=== PATIENT | female | born 1995 | race Caucasian/White ===

== ENCOUNTER 2018-09-11 13:40 | Observation (INO) | payer OTHER, BC, SELFPAY ==
[2018-09-11 13:42] VITALS: BP 142/93; PULSE 84; RESP 17; TEMP 36.4; O2SAT 99; BMI 25.7
--- NOTE | 2018-09-11 14:49 | RAD_ITS ---
STUDY: X-RAY CHEST REASON FOR EXAM: Female, 23 years old. Cough and shortness of breath. TECHNIQUE: Single AP portable view of the chest. COMPARISON: None. FINDINGS: The lungs are clear and expanded. There is no demonstrated pleural abnormality. Normal size heart. Normal mediastinum and huma. Normal visualized pulmonary arteries. Normal visualized aortic arch and descending thoracic aorta. Normal visualized thoracic spine. Normal visualized ribs, clavicles, and shoulders. There is no demonstrated abnormality of the visualized soft tissue structures of the upper abdomen. RAD/Chest 1 View (Portable) IMPRESSION: Normal x-ray examination of the chest. Electronically Signed: Braulio Reinoso, at 15:25 EDT , Service support ,
[2018-09-11 15:03] VITALS: BP 127/95; PULSE 77; RESP 16; O2SAT 98
[2018-09-11 15:21] LABS: Absolute Lymphocyte Count 0.53 X10^3/uL (0.83-4.51); Absolute Neutrophil Count 1.5 X10^3/uL (2.0-7.7); Basophil# 0.01 X10^3/uL; Basophil% 0.5 % (0-1); Eosinophil# 0.04 X10^3/uL; Eosinophils% 1.8 % (0-5); Hematocrit 37.9 % (37-47); Hemoglobin 12.9 g/dL (12.0-15.0); Lymphocyte # 0.53 X10^3/ul (4.0); Mean Corpuscular Hgb 30.1 pg (27.0-32.0); Mean Corpuscular Volume 88.6 fL (81-99); Mean Platelet Vol. 10.7 fl (6.2-12.0); Monocyte# 0.13 X10^3/uL; Monocyte% 5.9 % (0-10); NRBC Flagged by Analyzer 0 % (0-5); Neutrophil # 1.49 X10^3/uL (2.7-7.7); Neutrophil % 67.3 % (47-70); POSITIVE DIFFERENTIAL YES; Platelet Count 104 K/mm3 (150-450); RBC Distribution Width CV 11.8 % (11.6-14.6); RBC Distribution Width SD 37.4 fl (35.1-43.9); Red Blood Count 4.28 M/mm3 (4.2-5.4); White Blood Count 2.2 K/mm3 (4.4-11.0)
[2018-09-11 15:27] LABS: ALB/GLOB Ratio 0.8 RATIO (0.9-2.4); AST(SGOT) 323 U/L (15-37); Alanine Aminotransfer ALT/SGPT 349 U/L (13-56); Albumin, Serum 3.5 g/dL (3.2-5.0); Alkaline Phosphatase 85 U/L (45-117); Anion Gap 5 (5-15); BUN 8 mg/dL (7-18); BUN/Creat Ratio 10.5 RATIO (10-20); Calcium,Total 8.7 mg/dL (8.5-10.1); Chloride 107 mmol/L (98-107); Creatinine, Serum 0.76 mg/dL (0.55-1.02); EST Glomerular Filtration Rate 98 mL/min (>60); Est Glom Filt Rate - Afr Amer 119 mL/min (>60); Estimated Creatinine Clearance 101.82 ml/min; Globulin 4.5 g/dL (2.2-4.2); Glucose 90 mg/dL (74-106); Potassium 3.6 mmol/L (3.5-5.1); Sodium Level 138 mmol/L (136-145)
--- NOTE | 2018-09-11 15:41 | US_ITS ---
STUDY: ABDOMINAL ULTRASOUND - RIGHT UPPER QUADRANT REASON FOR VISIT: Female, 23 years old. Abdominal pain, lightheaded. Hepatitis. TECHNIQUE: Ultrasound evaluation of the right upper quadrant was performed with real-time and static chapin-scale imaging. TECHNICAL QUALITY: Adequate. COMPARISON: None. FINDINGS: Liver: The liver measures 21.1 cm. There is increased echogenicity consistent with fatty infiltration. The bile ducts are within normal limits. There is hepatic color flow. The direction of portal flow is hepatopetal. There is no demonstrated mass lesion. Gallbladder: Normal distended gallbladder. The gallbladder wall measures 2 mm. There is a negative sonographic Grover's sign. There is no pericholecystic fluid. There are no gallstones. Common Bile Duct (C.B.D.): The common bile duct measures 4 mm. Pancreas: Normal size of the head, body and tail of the pancreas. There is diffuse decreased echogenicity of the pancreas, which is of uncertain etiology and significance. There is no demonstrated pancreatic mass or cyst. Right Kidney: Normal size of the right kidney. The right kidney measures 11.6 x 4.1 x 4.0 cm. Normal renal cortex. The right cortex measures 1.6 cm. There is no demonstrated renal mass or cyst. There is no right hydronephrosis. US/Gallbladder IMPRESSION: 1. Hepatomegaly with steatosis. 2. Decreased echogenicity of the pancreas, which is of uncertain etiology and significance. Overall, the visualized pancreas is normal in size and contour. Electronically Signed: Henry Norris MD at 16:43 EDT , Service support ,
[2018-09-11 15:46] LABS: Internal QC Validated? YES +Cl - CLEAR BKGD; Pregnancy, Serum, hCG Quali. NEGATIVE Negative
[2018-09-11 15:47] LABS: Differential Indicated SCAN CRITERIA MET
[2018-09-11 16:01] LABS: Lipase 71 U/L (73-393)
[2018-09-11 16:03] LABS: Prothrombin Time (Protime)PT. 12.6 SECONDS (11.7-14.9)
[2018-09-11 16:04] LABS: Partial Thromboplast Time 48.2 Seconds (24.1-36.2)
--- NOTE | 2018-09-11 16:07 | ED.VISSUMM ---
- ER Visit Summary Date of Service: 09/11/18 Chief Complaint: Cough History of Present Illness: The patient is a 23 F who presents with a cough for 2 to 3 days. She felt slightly short of breath. Subjective fevers and sputum noted. Patient also reports blood mixed in her stool that she noticed last night. She had a history of hemorrhoids in the past but this bleeding is different. She does not take blood thinners. Denies abdominal pain. Physical Examination: Afebrile and vital signs unremarkable. Heart regular rate and rhythm. Lungs clear. Abdomen soft and nontender. Rectal exam showed no gross blood. Nontender. Chaperoned by ENMA Arteaga. Skin appears unremarkable. Test Results: Chest x-ray pending. White count 2.2 and platelets 104. Total bilirubin 1.4, ALT 349, AST 323. test pending. Lipase pending. Coags pending. Hepatitis panel pending. Hemoccult testing was positive. Ultrasound was pending. Emergency Department Course and Treatment: Patient is previously healthy. Because of her symptoms, I did order some labs and imaging. Her results so far have shown leukopenia and thrombocytopenia. She also has hepatitis pattern. I added on lipase, coags, ultrasound, and hepatitis panel. Disposition is still pending at this time. Dr. Hawk will check chest x-ray and ultrasound results as well as lipase, coags, hCG. Hepatitis panel will not likely be resulted by today. Further treatment and disposition are pending further results. Treatment Plan: As above Disposition: Pending Impression: 1. Cough 2. Hepatitis 3. Hemoccult positive stool 4. Leukopenia 5. Thrombocytopenia This note was generated with [employer] dictation software. It may contain incorrect words, spelling, and punctuation that were not noted in review of the chart prior to signing ED Disposition - Plan for ED Patient: Referrals: Care Physician,No Primary [Primary Care Provider] -
[2018-09-11 16:22] LABS: Differential Comment SCANNED
[2018-09-11 19:14] VITALS: BP 135/90; PULSE 93; RESP 16; O2SAT 99
[2018-09-11 19:43] VITALS: BP 130/84; PULSE 89; RESP 18; TEMP 36.9; O2SAT 98
[2018-09-11 19:44] VITALS: BMI 23.3
[2018-09-11 19:55] VITALS: BMI 23.4
--- NOTE | 2018-09-11 20:54 | HP.PCM_ITS ---
Problem List (1) Pneumonitis Status: Acute (2) Hepatitis Status: Acute History of Present Illness Date of Admission: 09/11/18 Chief Complaint: cough and shortness of breath The patient is a 23 year old F who presents to the emergency department because of a 3 days history of a cough 1 day history of shortness of breath. Cough is dry and nonproductive. Shortness of breath is at rest and with exertion. She denies any orthopnea or paroxysmal nocturnal dyspnea or lower extremity swelling. Denies any fever or chills. No upper respiratory symptoms. The patient also had an episode of bright red bleeding per rectum. This was not associated with any abdominal colic or cramps or pain. Blood work done in the emergency room reviewed elevated liver transaminases and ultrasound showing hepatomegaly with coarsening of the hepatic echotexture. Patient gives a history of one miscarriage and one early demise at 8 weeks and 22 weeks respectively. Gives a history of pain numbness and paleness of the fingertips on exposure to cold. She provides a history suggestive of photosensitivity with burning sensation of the skin on exposure to sun. Patient also has an occasional malar rash when she consumes alcohol and also when exposed to sun. She denies any joint pains or swelling. Patient denies IV drug abuse. She has obtained multiple tattoos in the past and one was done at the friend's house 4 years ago. There is a history of multiple sexual partners in the past. Patient is currently engaged and has been with her current partner for 2 years. She is unsure if she has never been tested for HIV or hepatitis. 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 Denies: Anorexia, Fever, Night Sweats Comment: Rest of the review of systems is essentially negative or as above in the body of the history VTE Information - Inpt Only VTE Present on Admission: No VTE Mechan Device Prophylaxis: None VTE Pharm Prophylaxis ordered?: Yes Patient Problems: Active and Suspected Problems Pneumonitis (Acute) Hepatitis (Acute) - Physical Exam General: Alert, Oriented x3, Cooperative, No apparent distress, - - Appears anxious and in mild distress. HEENT: Atraumatic Oral: Ulcerations Present Neck: Supple, No JVD, Negative Carotid Bruits Lungs: Clear to auscultation, Diminished Cardiovascular: Regular rate, Regular Rhythm, Normal S1, Normal S2, No murmurs Abdomen: Bowel Sounds Present, Soft, - - Tenderness in the right hypochondrium and in the epigastrium Skin: - - Mild malar rash Musculoskeletal: No Tenderness to Palpation of Joints or Extremities, No Muscle Wasting Neurological: Cranial nerves II-XII grossly intact, Deep Tendon Reflexes 2+/4 and Symmetrical, Neuro grossly intact Vital Signs Temp Pulse Resp BP Pulse Ox 98.5 F 89 18 130/84 H 98 09/11/18 19:43 09/11/18 19:43 09/11/18 19:43 09/11/18 19:43 09/11/18 19:43 Oxygen Delivery Method Room Air Weight: 63.7 kg Body Mass Index (BMI) 23.3 Microbiology Past 72 Hours 09/11/18 15:08 Stool Occult Blood (NAVEEN) - Final Stool Occult Blood Positive Laboratory Tests Past 24 Hrs 09/11/18 09/11/18 09/11/18 15:00 15:00 15:00 WBC 2.2 L RBC 4.28 Hgb 12.9 Hct 37.9 MCV 88.6 MCH 30.1 MCHC 34.0 RDW Std Deviation 37.4 RDW Coeff of Michael 11.8 Plt Count 104 L MPV 10.7 Immature Gran % (Auto) 0.500 Neut % (Auto) 67.3 Lymph % (Auto) 24.0 Stephenson % (Auto) 5.9 Eos % (Auto) 1.8 Baso % (Auto) 0.5 Absolute Neuts (auto) 1.5 L Absolute Lymphs (auto) 0.53 L Nucleated RBC % 0 Differential Comment SCANNED Diff Path Review May foll PT INR APTT Sodium 138 Potassium 3.6 Chloride 107 Carbon Dioxide 26.0 Anion Gap 5 BUN 8 Creatinine 0.76 Estim Creat Clear Calc 101.82 Est GFR (MDRD) Af Amer 119 Est GFR (MDRD) Non-Af 98 BUN/Creatinine Ratio 10.5 Glucose 90 Calcium 8.7 Total Bilirubin 1.40 H AST 323 H ALT 349 H Alkaline Phosphatase 85 Total Protein 8.0 Albumin 3.5 Globulin 4.5 H Albumin/Globulin Ratio 0.8 L Lipase Serum , Qual NEGATIVE Hepatitis A IgM Ab Hep Bs Antigen Hep B Core IgM Ab Hepatitis C Ab (EIA) 09/11/18 09/11/18 09/11/18 15:00 15:00 15:58 WBC RBC Hgb Hct MCV MCH MCHC RDW Std Deviation RDW Coeff of Michael Plt Count MPV Immature Gran % (Auto) Neut % (Auto) Lymph % (Auto) Stephenson % (Auto) Eos % (Auto) Baso % (Auto) Absolute Neuts (auto) Absolute Lymphs (auto) Nucleated RBC % Differential Comment Diff Path Review PT 12.6 INR 1.0 APTT 48.2 H Sodium Potassium Chloride Carbon Dioxide Anion Gap BUN Creatinine Estim Creat Clear Calc Est GFR (MDRD) Af Amer Est GFR (MDRD) Non-Af BUN/Creatinine Ratio Glucose Calcium Total Bilirubin AST ALT Alkaline Phosphatase Total Protein Albumin Globulin Albumin/Globulin Ratio Lipase 71 L Serum , Qual Hepatitis A IgM Ab Pending Hep Bs Antigen Pending Hep B Core IgM Ab Pending Hepatitis C Ab (EIA) Pending Assessment/Plan All Active Problems Pneumonitis (Acute) Hepatitis (Acute) 1. Acute onset of cough and shortness of breath. Chest x-ray normal on lung exam normal essentially. Suspect pneumonitis which may be noninfectious. For now we will treat with IV azithromycin. Oxygen supplementation if needed. Check d-dimer and if elevated then we will do a CT pulmonary angiogram. This will also help further image the lungs. 2. Abnormal liver function test/elevated liver transaminases. Will need to rule out chronic hepatitis B or C. Check for autoimmune hepatitis as well with anti-smooth muscle antibodies. Await results of testing. 3. Cytopenia. Patient has leukopenia and thrombocytopenia. Will screen for HIV. Patient informed that we will be testing for this. 4. Possible autoimmune/connective tissue disease. Main suspicion is for SLE (photosensitivity, rash, Raynaud's phenomena, miscarriages, oral ulcers, cytopenia). We will check relevant serologies including SID, [id number] DNA, sed rate and CRP amongst others. 5. Show DVT prophylaxis pharmacologically. Code Visit Inpatient E&M: 06715 Init Hosp L3
[2018-09-11 21:21] LABS: Erythrocyte Sedimentation Rate 16 mm/hr (0-20)
[2018-09-11 21:31] LABS: D-Dimer Quantitative (DVT/PE) 0.27 FEU/ug/m (0.27-0.49)
[2018-09-11] MEDS: 0.9% NaCl Peripheral Flush Adult/Peds IV (22:11)
[2018-09-11] MEDS: Ondansetron 4 MG/2 ML Vial IV (22:11)
[2018-09-11 23:47] LABS: Bacteria 0 SEEN /hpf (None Seen); Mucous, Urine 0 SEEN /hpf (<or=2+); Red Blood Cells-Urine 0 SEEN /hpf (0-5); White Blood Cells 0 SEEN /hpf (0-5)
[2018-09-11 23:52] LABS: Color, Urine Yellow (Yellow); Glucose, Dipstick Normal (Normal); Ketone-Dipstick Negative (Negative); Leukocyte Esterase-Dipstick Negative /ul (Negative); Nitrite-Dipstick Negative (Negative); Occult Blood-Urine 50 /ul (Negative); Protein-Dipstick Negative (Negative); Urine Bilirubin Dipstick Negative (Negative); Urine Clarity Clear (Clear); Urine Urobilinogen Normal (Normal); Urine pH 6.5 (5.0 - 8.0)
[2018-09-12 00:03] LABS: Squamous Epithelial Cells - UA 0-5 SEEN /hpf (5-10)
[2018-09-12 01:40] VITALS: BP 104/51; PULSE 72; RESP 16; TEMP 36.9; O2SAT 99
[2018-09-12 03:51] LABS: Rheumatoid Factor < 10.0 IU/mL (<15)
[2018-09-12 05:30] VITALS: BP 124/68; PULSE 75; RESP 16; TEMP 36.8; O2SAT 99
[2018-09-12 07:51] LABS: ALB/GLOB Ratio 0.7 RATIO (0.9-2.4); AST(SGOT) 396 U/L (15-37); Alanine Aminotransfer ALT/SGPT 420 U/L (13-56); Albumin, Serum 3.3 g/dL (3.2-5.0); Alkaline Phosphatase 83 U/L (45-117); Anion Gap 6 (5-15); BUN 10 mg/dL (7-18); BUN/Creat Ratio 11.7 RATIO (10-20); Calcium,Total 8.9 mg/dL (8.5-10.1); Chloride 107 mmol/L (98-107); Creatinine, Serum 0.85 mg/dL (0.55-1.02); EST Glomerular Filtration Rate 86 mL/min (>60); Est Glom Filt Rate - Afr Amer 104 mL/min (>60); Estimated Creatinine Clearance 91.04 ml/min; Globulin 4.6 g/dL (2.2-4.2); Glucose 82 mg/dL (74-106); Potassium 4.1 mmol/L (3.5-5.1); Protein, Total 7.9 g/dL (6.4-8.2); Sodium Level 140 mmol/L (136-145)
[2018-09-12 08:20] LABS: Absolute Lymphocyte Count 0.68 X10^3/uL (0.83-4.51); Absolute Neutrophil Count 1.4 X10^3/uL (2.0-7.7); Basophil# 0.02 X10^3/uL; Basophil% 0.9 % (0-1); Eosinophil# 0.06 X10^3/uL; Eosinophils% 2.6 % (0-5); Hematocrit 36.9 % (37-47); Hemoglobin 12.4 g/dL (12.0-15.0); Lymphocyte # 0.68 X10^3/ul (4.0); Lymphocyte % 29.6 % (19-41); Mean Corp Hgb Conc 33.6 g/dL (32-36); Mean Corpuscular Hgb 30.2 pg (27.0-32.0); Mean Corpuscular Volume 89.8 fL (81-99); Mean Platelet Vol. 11.1 fl (6.2-12.0); Monocyte# 0.15 X10^3/uL; Monocyte% 6.5 % (0-10); NRBC Flagged by Analyzer 0 % (0-5); Neutrophil # 1.38 X10^3/uL (2.7-7.7); Platelet Count 96 K/mm3 (150-450); RBC Distribution Width CV 11.8 % (11.6-14.6); RBC Distribution Width SD 38.5 fl (35.1-43.9); Red Blood Count 4.11 M/mm3 (4.2-5.4); White Blood Count 2.3 K/mm3 (4.4-11.0)
[2018-09-12 09:18] LABS: Differential Comment SCANNED
[2018-09-12 09:19] LABS: Platelet Estimate MOD DEC (ADEQ)
[2018-09-12] MEDS: 0.9% NaCl Peripheral Flush Adult/Peds IV ×2 (09:28→16:52)
[2018-09-12] MEDS: oxyCODONE 5 MG Tablet PO (09:28)
--- NOTE | 2018-09-12 09:53 | PCM.CONS.GEN ---
Reason for Consult Date of Consultation: 09/12/18 Reason for Consultation: Rectal bleeding History of Present Illness: The patient is a 23 year old F presented to the ER due to cough/shortness of breath and bright red blood in her stool. Patient states that she noticed bright red blood in her stool a small amount Peg night. Patient's hemoglobin is within normal range at 12.4. Patient states she has had diarrhea for the last 2 weeks. Yesterday she also had diarrhea but denied any blood. Patient denies any abdominal pain but does state with palpation it may be a 2/10 in the right upper quadrant denies any nausea or vomiting. Patient's LFTs AST and ALT were in 300s, ultrasound of the gallbladder was normal with a normal wall, no gallstones, no pericholecystic fluid, normal common bile duct, hepatitis panel pending. Patient denies any history of drug use or IV drug use or STDs. Patient does state that her boyfriend also has diarrhea unsure who had a first and has questionable mass on his neck which he was referred to for ENT and has not seen due to no insurance currently. Patient has never had a colonoscopy in the past denies any family history of colon cancer. Patient states she has had a history of hemorrhoids and had occasional bleeding with that but that was different as there is blood on the toilet paper and it was painful for the bowel movement this was not painful, and she is unaware of any current hemorrhoids. Past Medical History Allergies Latex, Natural Rubber Allergy (Verified 09/11/18 13:41) Rash Penicillins Allergy (Verified 09/11/18 13:41) Rash shellfish derived Allergy (Verified 09/11/18 13:41) Angioedema tree nut Allergy (Verified 09/11/18 13:41) Swelling red dye Adverse Reaction (Verified 09/11/18 13:41) Vomiting Surgical History: no surgical history [employer] History: No pertinent [employer] history, - - Miscarriages x2 Lives: With Family Smoking Status: Never smoker Tobacco Use: Non-smoker Alcohol: Occasional Drugs: None - *Family History Offspring History Items: No pertinent history Review of Systems Constitutional: Denies: Fever Eyes: Denies: Blurred vision - With glasses HEENT: Denies: Difficulty Swallowing Cardiovascular: Denies: Chest Pain Respiratory: Reports: Cough. Denies: Shortness of Breath - None currently Gastrointestinal: Reports: Diarrhea, Hematochezia - Only x1 on Sunday night. Denies: Abdominal Pain, Vomiting Genitourinary: Denies: Dysuria Musculoskeletal: Denies: Joint Pain Skin: Denies: Rash Neurological: Denies: Balance problems Psychiatric: Reports: Anxiety. Denies: Depression Hematologic/ Lymphatic: Reports: Easy Bruising. Denies: Easy Bleeding Patient Problems: Active and Suspected Problems Pneumonitis (Acute) Hepatitis (Acute) - Physical Exam General: Alert, Oriented x3, Cooperative, No apparent distress HEENT: Atraumatic Lungs: Clear to auscultation Cardiovascular: Regular rate Abdomen: Soft, Non-Distended, Tender - Mild epigastric, no peritoneal signs Extremities: No clubbing, No cyanosis, No edema Neurological: Cranial nerves II-XII grossly intact Psych/Mental Status: Normal Affect Vital Signs Temp Pulse Resp BP Pulse Ox 98.2 F 75 16 124/68 H 99 09/12/18 05:30 09/12/18 05:30 09/12/18 05:30 09/12/18 05:30 09/12/18 05:30 Oxygen Delivery Method Room Air Weight: 140 lb 6.951 oz Body Mass Index (BMI) 23.3 Intake and Output for Last 24 Hours 09/10/18 09/11/18 09/12/18 23:59 23:59 23:59 Intake Total 652 / 652 120 / 120 Balance 652 / 652 120 / 120 Microbiology Past 72 Hours 09/11/18 15:08 Stool Occult Blood (NAVEEN) - Final Stool Occult Blood Positive Laboratory Tests Past 24 Hrs 09/11/18 09/11/18 09/11/18 15:00 15:00 15:00 WBC 2.2 L RBC 4.28 Hgb 12.9 Hct 37.9 MCV 88.6 MCH 30.1 MCHC 34.0 RDW Std Deviation 37.4 RDW Coeff of Michael 11.8 Plt Count 104 L MPV 10.7 Immature Gran % (Auto) 0.500 Neut % (Auto) 67.3 Lymph % (Auto) 24.0 Kent % (Auto) 5.9 Eos % (Auto) 1.8 Baso % (Auto) 0.5 Absolute Neuts (auto) 1.5 L Absolute Lymphs (auto) 0.53 L Nucleated RBC % 0 Differential Comment SCANNED Diff Path Review May foll Platelet Estimate ESR PT INR APTT D-Dimer Quant (PE/DVT) Sodium 138 Potassium 3.6 Chloride 107 Carbon Dioxide 26.0 Anion Gap 5 BUN 8 Creatinine 0.76 Estim Creat Clear Calc 101.82 Est GFR (MDRD) Af Amer 119 Est GFR (MDRD) Non-Af 98 BUN/Creatinine Ratio 10.5 Glucose 90 Calcium 8.7 Total Bilirubin 1.40 H AST 323 H ALT 349 H Alkaline Phosphatase 85 C-React Prot Ext Range Total Protein 8.0 Albumin 3.5 Globulin 4.5 H Albumin/Globulin Ratio 0.8 L Lipase Serum , Qual NEGATIVE Urine Color Urine Clarity Urine pH Ur Specific [place] Urine Protein Urine Glucose (UA) Urine Ketones Urine Occult Blood Urine Nitrite Urine Bilirubin Urine Urobilinogen Ur Leukocyte Esterase Urine RBC Urine WBC Ur Squamous Epith Cells Urine Bacteria Urine Mucus Rheumatoid Factor SID Screen c-ANCA Antibody p-ANCA Antibody CHON-1 Antibody SS-A/Ro IgG Antibody SS-B/La IgG Antibody Sm (Matias) Antibody CHIP BIN [employer]OR TENDER Antibody Scl-70 Scleroderma Ab Double Strand DNA Ab Centromere B Antibody Anti-Smooth Muscle Ab Anti-Cardiolipin IgG Ab Anti-Cardiolipin IgM Ab EBV Capsid Ag IgG Ab EBV Capsid Ag IgM Ab EBV Early Antigen IgG EBV Nuclear Ag IgG Ab EBV Antibody Interp Hepatitis A IgM Ab Hep Bs Antigen Hep B Core IgM Ab Hepatitis C Ab (EIA) 09/11/18 09/11/18 09/11/18 15:00 15:00 15:00 WBC RBC Hgb Hct MCV MCH MCHC RDW Std Deviation RDW Coeff of Michael Plt Count MPV Immature Gran % (Auto) Neut % (Auto) Lymph % (Auto) [place] % (Auto) Eos % (Auto) Baso % (Auto) Absolute Neuts (auto) Absolute Lymphs (auto) Nucleated RBC % Differential Comment Diff Path Review Platelet Estimate ESR 16 PT 12.6 INR 1.0 APTT 48.2 H D-Dimer Quant (PE/DVT) Sodium Potassium Chloride Carbon Dioxide Anion Gap BUN Creatinine Estim Creat Clear Calc Est GFR (MDRD) Af Amer Est GFR (MDRD) Non-Af BUN/Creatinine Ratio Glucose Calcium Total Bilirubin AST ALT Alkaline Phosphatase C-React Prot Ext Range Total Protein Albumin Globulin Albumin/Globulin Ratio Lipase 71 L Serum , Qual Urine Color Urine Clarity Urine pH Ur Specific [place] Urine Protein Urine Glucose (UA) Urine Ketones Urine Occult Blood Urine Nitrite Urine Bilirubin Urine Urobilinogen Ur Leukocyte Esterase Urine RBC Urine WBC Ur Squamous Epith Cells Urine Bacteria Urine Mucus Rheumatoid Factor SID Screen c-ANCA Antibody p-ANCA Antibody CHON-1 Antibody SS-A/Ro IgG Antibody SS-B/La IgG Antibody Sm (Matias) Antibody CHIP [employer]ENDER Antibody Scl-70 Scleroderma Ab Double Strand DNA Ab Centromere B Antibody Anti-Smooth Muscle Ab Anti-Cardiolipin IgG Ab Anti-Cardiolipin IgM Ab EBV Capsid Ag IgG Ab EBV Capsid Ag IgM Ab EBV Early Antigen IgG EBV Nuclear Ag IgG Ab EBV Antibody Interp Hepatitis A IgM Ab Hep Bs Antigen Hep B Core IgM Ab Hepatitis C Ab (EIA) 09/11/18 09/11/18 09/11/18 15:00 15:00 15:58 WBC RBC Hgb Hct MCV MCH MCHC RDW Std Deviation RDW Coeff of Michael Plt Count MPV Immature Gran % (Auto) Neut % (Auto) Lymph % (Auto) [place] % (Auto) Eos % (Auto) Baso % (Auto) Absolute Neuts (auto) Absolute Lymphs (auto) Nucleated RBC % Differential Comment Diff Path Review Platelet Estimate ESR PT INR APTT D-Dimer Quant (PE/DVT) 0.27 Sodium Potassium Chloride Carbon Dioxide Anion Gap BUN Creatinine Estim Creat Clear Calc Est GFR (MDRD) Af Amer Est GFR (MDRD) Non-Af BUN/Creatinine Ratio Glucose Calcium Total Bilirubin AST ALT Alkaline Phosphatase C-React Prot Ext Range 6.60 H Total Protein Albumin Globulin Albumin/Globulin Ratio Lipase Serum , Qual Urine Color Urine Clarity Urine pH Ur Specific [place] Urine Protein Urine Glucose (UA) Urine Ketones Urine Occult Blood Urine Nitrite Urine Bilirubin Urine Urobilinogen Ur Leukocyte Esterase Urine RBC Urine WBC Ur Squamous Epith Cells Urine Bacteria Urine Mucus Rheumatoid Factor < 10.0 SID Screen c-ANCA Antibody p-ANCA Antibody CHON-1 Antibody SS-A/Ro IgG Antibody SS-B/La IgG Antibody Sm (Matias) Antibody CHIP [employer]ER Antibody Scl-70 Scleroderma Ab Double Strand DNA Ab Centromere B Antibody Anti-Smooth Muscle Ab Anti-Cardiolipin IgG Ab Anti-Cardiolipin IgM Ab EBV Capsid Ag IgG Ab EBV Capsid Ag IgM Ab EBV Early Antigen IgG EBV Nuclear Ag IgG Ab EBV Antibody Interp Hepatitis A IgM Ab Pending Hep Bs Antigen Pending Hep B Core IgM Ab Pending Hepatitis C Ab (EIA) Pending 09/11/18 09/12/18 09/12/18 22:28 05:20 05:20 WBC RBC Hgb Hct MCV MCH MCHC RDW Std Deviation RDW Coeff of Michael Plt Count MPV Immature Gran % (Auto) Neut % (Auto) Lymph % (Auto) [place] % (Auto) Eos % (Auto) Baso % (Auto) Absolute Neuts (auto) Absolute Lymphs (auto) Nucleated RBC % Differential Comment Diff Path Review Platelet Estimate ESR PT INR APTT D-Dimer Quant (PE/DVT) Sodium Potassium Chloride Carbon Dioxide Anion Gap BUN Creatinine Estim Creat Clear Calc Est GFR (MDRD) Af Amer Est GFR (MDRD) Non-Af BUN/Creatinine Ratio Glucose Calcium Total Bilirubin AST ALT Alkaline Phosphatase C-React Prot Ext Range Total Protein Albumin Globulin Albumin/Globulin Ratio Lipase Serum , Qual Urine Color Yellow Urine Clarity Clear Urine pH 6.5 Ur Specific [place] 1.010 Urine Protein Negative Urine Glucose (UA) Normal Urine Ketones Negative Urine Occult Blood 50 H Urine Nitrite Negative Urine Bilirubin Negative Urine Urobilinogen Normal Ur Leukocyte Esterase Negative Urine RBC 0 SEEN Urine WBC 0 SEEN Ur Squamous Epith Cells 0-5 SEEN Urine Bacteria 0 SEEN Urine Mucus 0 SEEN Rheumatoid Factor SID Screen c-ANCA Antibody Pending p-ANCA Antibody Pending CHON-1 Antibody SS-A/Ro IgG Antibody SS-B/La IgG Antibody Sm (Matias) Antibody CHIP [employer]ER Antibody Scl-70 Scleroderma Ab Double Strand DNA Ab Centromere B Antibody Anti-Smooth Muscle Ab Pending Anti-Cardiolipin IgG Ab Anti-Cardiolipin IgM Ab EBV Capsid Ag IgG Ab Pending EBV Capsid Ag IgM Ab Pending EBV Early Antigen IgG Pending EBV Nuclear Ag IgG Ab Pending EBV Antibody Interp Pending Hepatitis A IgM Ab Hep Bs Antigen Hep B Core IgM Ab Hepatitis C Ab (EIA) 09/12/18 09/12/18 09/12/18 05:20 05:20 05:20 WBC 2.3 L RBC 4.11 L Hgb 12.4 Hct 36.9 L MCV 89.8 MCH 30.2 MCHC 33.6 RDW Std Deviation 38.5 RDW Coeff of Michael 11.8 Plt Count 96 L MPV 11.1 Immature Gran % (Auto) 0.400 Neut % (Auto) 60.0 Lymph % (Auto) 29.6 [place] % (Auto) 6.5 Eos % (Auto) 2.6 Baso % (Auto) 0.9 Absolute Neuts (auto) 1.4 L Absolute Lymphs (auto) 0.68 L Nucleated RBC % 0 Differential Comment SCANNED Diff Path Review Platelet Estimate MOD DEC ESR PT INR APTT D-Dimer Quant (PE/DVT) Sodium Potassium Chloride Carbon Dioxide Anion Gap BUN Creatinine Estim Creat Clear Calc Est GFR (MDRD) Af Amer Est GFR (MDRD) Non-Af BUN/Creatinine Ratio Glucose Calcium Total Bilirubin AST ALT Alkaline Phosphatase C-React Prot Ext Range Total Protein Albumin Globulin Albumin/Globulin Ratio Lipase Serum , Qual Urine Color Urine Clarity Urine pH Ur Specific [place] Urine Protein Urine Glucose (UA) Urine Ketones Urine Occult Blood Urine Nitrite Urine Bilirubin Urine Urobilinogen Ur Leukocyte Esterase Urine RBC Urine WBC Ur Squamous Epith Cells Urine Bacteria Urine Mucus Rheumatoid Factor SID Screen Pending c-ANCA Antibody p-ANCA Antibody CHON-1 Antibody Pending SS-A/Ro IgG Antibody Pending SS-B/La IgG Antibody Pending Sm (Matias) Antibody Pending CHIP [employer]ER Antibody Pending Scl-70 Scleroderma Ab Pending Double Strand DNA Ab Pending Centromere B Antibody Pending Anti-Smooth Muscle Ab Anti-Cardiolipin IgG Ab Pending Anti-Cardiolipin IgM Ab Pending EBV Capsid Ag IgG Ab EBV Capsid Ag IgM Ab EBV Early Antigen IgG EBV Nuclear Ag IgG Ab EBV Antibody Interp Hepatitis A IgM Ab Hep Bs Antigen Hep B Core IgM Ab Hepatitis C Ab (EIA) 09/12/18 05:20 WBC RBC Hgb Hct MCV MCH MCHC RDW Std Deviation RDW Coeff of Michael Plt Count MPV Immature Gran % (Auto) Neut % (Auto) Lymph % (Auto) [place] % (Auto) Eos % (Auto) Baso % (Auto) Absolute Neuts (auto) Absolute Lymphs (auto) Nucleated RBC % Differential Comment Diff Path Review Platelet Estimate ESR PT INR APTT D-Dimer Quant (PE/DVT) Sodium 140 Potassium 4.1 Chloride 107 Carbon Dioxide 27.0 Anion Gap 6 BUN 10 Creatinine 0.85 Estim Creat Clear Calc 91.04 Est GFR (MDRD) Af Amer 104 Est GFR (MDRD) Non-Af 86 BUN/Creatinine Ratio 11.7 Glucose 82 Calcium 8.9 Total Bilirubin 1.60 H AST 396 H ALT 420 H Alkaline Phosphatase 83 C-React Prot Ext Range Total Protein 7.9 Albumin 3.3 Globulin 4.6 H Albumin/Globulin Ratio 0.7 L Lipase Serum , Qual Urine Color Urine Clarity Urine pH Ur Specific [place] Urine Protein Urine Glucose (UA) Urine Ketones Urine Occult Blood Urine Nitrite Urine Bilirubin Urine Urobilinogen Ur Leukocyte Esterase Urine RBC Urine WBC Ur Squamous Epith Cells Urine Bacteria Urine Mucus Rheumatoid Factor SID Screen c-ANCA Antibody p-ANCA Antibody CHON-1 Antibody SS-A/Ro IgG Antibody SS-B/La IgG Antibody Sm (Matias) Antibody CHIP BIN CONVEYOR TENDER Antibody Scl-70 Scleroderma Ab Double Strand DNA Ab Centromere B Antibody Anti-Smooth Muscle Ab Anti-Cardiolipin IgG Ab Anti-Cardiolipin IgM Ab EBV Capsid Ag IgG Ab EBV Capsid Ag IgM Ab EBV Early Antigen IgG EBV Nuclear Ag IgG Ab EBV Antibody Interp Hepatitis A IgM Ab Hep Bs Antigen Hep B Core IgM Ab Hepatitis C Ab (EIA) Assessment/Plan All Active Problems Pneumonitis (Acute) Hepatitis (Acute) 23-year-old female with elevated liver functions likely hepatitis, rectal bleeding 1. Patient only had the one episode of small amount of bright red blood per rectum. Patient's hemoglobins within normal limits, vital signs stable. Recommend outpatient colonoscopy for follow-up unless patient has increased bleeding or change in labs/vital signs. Patient was agreeable to plan. d/w Dr. Vela. I have discussed the above with the patient. I have offered the patient colonoscopy for evaluation. I have explained the risks/benefits of the procedure and described the procedure. I have discussed the risks with the patient, including but not limited to: infection, bleeding, perforation of the GI tract requiring emergency surgery, inability to complete the procedure, injury to any internal organs, complications of anesthesia, etc. - the patient understands and agrees to proceed. I have answered all the patient's questions to the patient's satisfaction and the patient has no further questions. Patient will contact the office for bowel prep and scheduling when she is discharged. 2. Elevated functions continue work-up per primary. Judi Rodriguez M.D. Pager: [phone] [facility] [address] [place] [address], [address], [address] [place] [address] Office: [phone] Code Visit Inpatient E&M: 55455 Init Hosp L2
--- NOTE | 2018-09-12 11:10 | CASEMGMT ---
ENMA VITALE assessment: Face to Face with patient for initial transition planning/care coordination assessment. ENMA VITALE introduced self and role at [facility], pt voices understanding and consents to assessment at this time. Pt is sitting up in bed in no distress at this time. Pt is A/Ox4 at this time and answers all questions appropriately at this time. Care providers, pharmacy, and demographics verified/updated at this time. PCP: Pt states does not have current PCP but would like in-network PCP list at this time and list provided at this time. Specialists: [facility] Preferred Pharmacy: [facility] Insurance: MMO Prescription Benefit: MMO Living Will/HPOA: Pt states does not have LW/HPOA and declines info at this time. LNOK: David Milligan, sig other; Emily Castaneda, mother Living Arrangements: Pt states lives with family/fiance in house and states no concerns at home at this time. Pt states is independent with ADL's. Transportation: Pt states drives self and states no transportation concerns at this time. DME/HHC: Pt states no current DME or need for any at this time. Pt states no concerns with going home at time of discharge. 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 Pt states does not smoke or drink ETOH. Pt states no further concerns/needs at this time. CM to follow for any further discharge planning/needs. Advised pt to ask for CM if any further questions/concerns/needs arise, voices understanding. Pt Goal: Home Plan: [place] ENMA VITALE
[2018-09-12 11:30] VITALS: BP 103/59; PULSE 87; RESP 18; TEMP 36.7; O2SAT 98
--- NOTE | 2018-09-12 11:35 | PN_ITS ---
Patient Problems: Active and Suspected Problems Pneumonitis (Acute) Hepatitis (Acute) Subjective: Patient seen and examined. She has no complaints today. Rectal bleeding didnt recur. She denies any fever, chills, palpitations, dizziness, nausea, vomiting or diarrhea. Review of systems otherwise negative. ON further enquiry, patient says her mother had ovarian cancer in her mid 20s, and her maternal grandfather had a form of cancer, but she is not sure exactly which type it is. She doesnt know of any history of arterial or venous thromboembolism in her family. Labs and vitals reviewed. Liver enzymes noted to be trending upwards. Vitals/I&O's: Vital Signs Temp Pulse Resp BP Pulse Ox 98.2 F 75 16 124/68 H 99 09/12/18 05:30 09/12/18 05:30 09/12/18 05:30 09/12/18 05:30 09/12/18 05:30 Oxygen Delivery Method Room Air Weight: 140 lb 6.951 oz Body Mass Index (BMI) 23.3 Intake and Output for Last 24 Hours 09/10/18 09/11/18 09/12/18 23:59 23:59 23:59 Intake Total 652 / 652 120 / 120 Balance 652 / 652 120 / 120 General: Alert, Oriented x3, Cooperative, No apparent distress HEENT: Atraumatic, PERRLA, EOMI, Normocephalic Oral: Moist Mucosa Neck: Supple, No JVD, Negative Carotid Bruits Lungs: Clear to auscultation, Normal air movement, No rhonchi, No wheeze, No rales Cardiovascular: Regular rate, Regular Rhythm, Normal S1, Normal S2, No murmurs Abdomen: Bowel Sounds Present, Soft, Non Tender, Non-Distended, No Hepato- splenomegaly Extremities: No clubbing, No cyanosis, No edema, Capillary Refill Less than 3 Seconds Skin: No breakdown, - - faint erythematous malar rash, sparing the nasolabial folds Musculoskeletal: No Tenderness to Palpation of Joints or Extremities Lymphatic: No Cervical, Supraclavicular, or Inguinal Adenopathy Neurological: Cranial nerves II-XII grossly intact, Neuro grossly intact, Motor Exam 5/5 strength throughout Psych/Mental Status: Normal Affect, Appropriate, Alert and oriented to time, place, person, mood and affect Microbiology Past 72 Hours 09/11/18 15:08 Stool Stool Occult Blood (NAVEEN) - Final Occult Blood Positive Laboratory Results 09/11/18 15:00: WBC 2.2 L, RBC 4.28, Hgb 12.9, Hct 37.9, MCV 88.6, MCH 30.1, MCHC 34.0, RDW Std Deviation 37.4, RDW Coeff of Michael 11.8, Plt Count 104 L, MPV 10.7, Immature Gran % (Auto) 0.500, Neut % (Auto) 67.3, Lymph % (Auto) 24.0, [place] % (Auto) 5.9, Eos % (Auto) 1.8, Baso % (Auto) 0.5, Absolute Neuts (auto) 1.5 L, Absolute Lymphs (auto) 0.53 L, Nucleated RBC % 0, Differential Comment SCANNED, Diff Path Review June09/11/18 15:00: Sodium 138, Potassium 3.6, Chloride 107, Carbon Dioxide 26.0, Anion Gap 5, BUN 8, Creatinine 0.76, Estim Creat Clear Calc 101.82, Est GFR (MDRD) Af Amer 119, Est GFR (MDRD) Non-Af 98, BUN/Creatinine Ratio 10.5, Glucose 90, Calcium 8.7, Total Bilirubin 1.40 H, AST 323 H, ALT 349 H, Alkaline Phosphatase 85, Total Protein 8.0, Albumin 3.5, Globulin 4.5 H, Albumin/Globulin Ratio 0.8 L 09/11/18 15:00: Serum , Qual NEGATIVE 09/11/18 15:00: PT 12.6, INR 1.0, APTT 48.2 H 09/11/18 15:00: Lipase 71 L 09/11/18 15:00: ESR 16 09/11/18 15:00: D-Dimer Quant (PE/DVT) 0.27 09/11/18 15:00: C-React Prot Ext Range 6.60 H, Rheumatoid Factor < 10.0 09/11/18 15:58: Hepatitis A IgM Ab Pending, Hep Bs Antigen Pending, Hep B Core IgM Ab Pending, Hepatitis C Ab (EIA) Pending 09/11/18 22:28: Urine Color Yellow, Urine Clarity Clear, Urine pH 6.5, Ur Specific [place] 1.010, Urine Protein Negative, Urine Glucose (UA) Normal, Urine Ketones Negative, Urine Occult Blood 50 H, Urine Nitrite Negative, Urine Bilirubin Negative, Urine Urobilinogen Normal, Ur Leukocyte Esterase Negative, Urine RBC 0 SEEN, Urine WBC 0 SEEN, Ur Squamous Epith Cells 0-5 SEEN, Urine B acteria 0 SEEN, Urine Mucus 0 SEEN 09/12/18 05:20: EBV Capsid Ag IgG Ab Pending, EBV Capsid Ag IgM Ab Pending, EBV Early Antigen IgG Pending, EBV Nuclear Ag IgG Ab Pending, EBV Antibody Interp Pending 09/12/18 05:20: c-ANCA Antibody Pending, p-ANCA Antibody Pending, Anti-Smooth Muscle Ab Pending 09/12/18 05:20: SID Screen Pending, CHON-1 Antibody Pending, SS-A/Ro IgG Antibody Pending, SS-B/La IgG Antibody Pending, Sm (Matias) Antibody Pending, DATABASE SECURITY EXPERT Antibody Pending, Scl-70 Scleroderma Ab Pending, Double Strand DNA Ab Pending, Centromere B Antibody Pending 09/12/18 05:20: Anti-Cardiolipin IgG Ab Pending, Anti-Cardiolipin IgM Ab Pending 09/12/18 05:20: WBC 2.3 L, RBC 4.11 L, Hgb 12.4, Hct 36.9 L, MCV 89.8, MCH 30.2, MCHC 33.6, RDW Std Deviation 38.5, RDW Coeff of Michael 11.8, Plt Count 96 L, MPV 11 .1, Immature Gran % (Auto) 0.400, Neut % (Auto) 60.0, Lymph % (Auto) 29.6, [place] % (Auto) 6.5, Eos % (Auto) 2.6, Baso % (Auto) 0.9, Absolute Neuts (auto) 1.4 L, Absolute Lymphs (auto) 0.68 L, Nucleated RBC % 0, Differential Comment SCANNED, Platelet Estimate MOD 09/12/18 05:20: Sodium 140, Potassium 4.1, Chloride 107, Carbon Dioxide 27.0, Anion Gap 6, BUN 10, Creatinine 0.85, Estim Creat Clear Calc 91.04, Est GFR (MDRD) Af Amer 104, Est GFR (MDRD) Non-Af 86, BUN/Creatinine Ratio 11.7, Glucose 82, Calcium 8.9, Total Bilirubin 1.60 H, AST 396 H, ALT 420 H, Alkaline Phosphatase 83, Total Protein 7.9, Albumin 3.3, Globulin 4.6 H, Albumin/Globulin Ratio 0.7 L Diagnostic Data Chest X-Ray 09/11/18 14:49 IMPRESSION: Normal x-ray examination of the chest. Electronically Signed: Braulio Kemar, at 15:25 EDT , Service support , Gallbladder Ultrasound 09/11/18 15:41 IMPRESSION: 1. Hepatomegaly with steatosis. 2. Decreased echogenicity of the pancreas, which is of uncertain etiology and significance. Overall, the visualized pancreas is normal in size and contour. Electronically Signed: Henry Norris MD at 16:43 EDT , Service support , Current Medications Azithromycin 500 mg/ Dextrose 255 mls @ 250 mls/hr IV Q24 JOVANI Stop: 09/13/18 11:02 Last Admin: 09/12/18 09:28 Dose: 250 mls/hr Documented by: Sodium Chloride () 250 mls @ 15 mls/hr IV .[id number] PRN PRN Reason: SALINE FLUSH Nutritional Formula (Lactose Free) (Ensure Enlive) 120 ml PO 4X/DAY JOVANI Last Admin: 09/12/18 09:35 Dose: Not Given Documented by: Ondansetron HCl (Zofran) 4 mg IV Q8H PRN PRN PRN Reason: NAUSEA/VOMITING Last Admin: 09/11/18 22:11 Dose: 4 mg Documented by: Sodium Chloride () 10 - 40 ml IV UD PRN PRN Reason: SALINE FLUSH Last Admin: 09/12/18 09:28 Dose: 20 ml Documented by: Medical Necessity - Tobacco Use Smoking Status: Never smoker Tobacco Use: Non-smoker Assessment/Plan All Active Problems Pneumonitis (Acute) Hepatitis (Acute) 1. Probable pneumonitis * admitted with cough and shortness of breath, which were both acute * Chest Xray was WNL, and showed no acute cardiopulmonary process * was started on IV azithromycin empirically, says she feels much better; cough and SOB have resolved * D dimer was not elevated. * continue IV azithromycin for now 2. Elevated transaminases * liver enzymes trended up further today. * Bilirubin is up to 1.6 from 1.4; AST/ALT up to 396/420 from 323/349. * ALP is WNL, therefore making cholestasis less likely * gallbadder USG showed normal gallbladder, and showed hepatomegaly with steatosis, and decreased echogenicity of the pancreas of uncertain etiology and significance though overall the visualized pancreas was normal in size and contour * hepatitis screen and autoimmune panel pending. * 3. Rectal bleeding * States she had an episode of rectal bleeding yesterday. Blood was mixed with stool. She has a history of fibroids but states that this bleeding with a previous bleeding due to hemorrhoids. * Stool for occult blood was positive. * Surgery consulted. Plan is for patient to have colonoscopy on outpatient basis. * 4. Possible autoimmune disease, likely SLE * patient complains of erythema over her cheeks, which worsens exposes to sunlight. Physical examination confirmed presence of a malar rash with sparing of the nasolabial folds. * And also had two miscarriages. Labs also showed leukopenia and thrombocytopenia. * autoimmune panel is pending. * for follow up with rheumatology upon discharge * rheumatoid factor was negative, at <10 * 5. Leukopenia and thrombocytopenia * asymptomatic. Wbc is 2.3, and platelets are down to 96, from 104 on admission * this may be due to suspected autoimmune condition. * will monitor. HIV screen ordered at time of admission, results pending. DVT prophylaxis: SCDs Code Visit Inpatient E&M: 18742 Subs Hosp L3
[2018-09-12 12:39] LABS: Bilirubin, Direct 0.53 mg/dL (0.00-0.30)
[2018-09-12] MEDS: Ketorolac 15 MG/ML Vial IV (16:51)
[2018-09-12 17:00] VITALS: BP 111/68; PULSE 68; RESP 14; TEMP 36.7; O2SAT 99
[2018-09-12 21:27] VITALS: BP 109/68; PULSE 67; RESP 15; TEMP 36.8; O2SAT 97
[2018-09-13 03:37] VITALS: BP 109/73; PULSE 72; RESP 15; TEMP 36.8; O2SAT 99
[2018-09-13 04:06] LABS: HEPATITIS B SURFACE AG Negative (Negative); Hepatitis A IgM Antibody Negative (Negative); Hepatitis B Core AB IgM Negative (Negative)
[2018-09-13 05:57] LABS: Absolute Neutrophil Count 1.3 X10^3/uL (2.0-7.7); Basophil# 0.02 X10^3/uL; Basophil% 0.9 % (0-1); Eosinophil# 0.05 X10^3/uL; Eosinophils% 2.1 % (0-5); Hemoglobin 12.6 g/dL (12.0-15.0); Mean Corp Hgb Conc 34.1 g/dL (32-36); Mean Corpuscular Hgb 30.5 pg (27.0-32.0); Mean Corpuscular Volume 89.6 fL (81-99); Mean Platelet Vol. 10.5 fl (6.2-12.0); Monocyte# 0.14 X10^3/uL; NRBC Flagged by Analyzer 0 % (0-5); Neutrophil # 1.33 X10^3/uL (2.7-7.7); Neutrophil % 56.6 % (47-70); Platelet Count 106 K/mm3 (150-450); RBC Distribution Width CV 11.7 % (11.6-14.6); RBC Distribution Width SD 37.5 fl (35.1-43.9); Red Blood Count 4.13 M/mm3 (4.2-5.4); White Blood Count 2.4 K/mm3 (4.4-11.0)
[2018-09-13 06:23] LABS: ALB/GLOB Ratio 0.7 RATIO (0.9-2.4); AST(SGOT) 342 U/L (15-37); Alanine Aminotransfer ALT/SGPT 419 U/L (13-56); Albumin, Serum 3.1 g/dL (3.2-5.0); Alkaline Phosphatase 72 U/L (45-117); Anion Gap 6 (5-15); BUN 11 mg/dL (7-18); BUN/Creat Ratio 14.2 RATIO (10-20); Calcium,Total 8.8 mg/dL (8.5-10.1); Chloride 106 mmol/L (98-107); Creatinine, Serum 0.77 mg/dL (0.55-1.02); EST Glomerular Filtration Rate 97 mL/min (>60); Est Glom Filt Rate - Afr Amer 117 mL/min (>60); Globulin 4.3 g/dL (2.2-4.2); Glucose 87 mg/dL (74-106); Potassium 4.2 mmol/L (3.5-5.1); Protein, Total 7.4 g/dL (6.4-8.2); Sodium Level 140 mmol/L (136-145)
--- NOTE | 2018-09-13 08:58 | PN_ITS ---
Patient Problems: Active and Suspected Problems Pneumonitis (Acute) Hepatitis (Acute) Subjective: Patient seen and examined. She had no complaints and remains asymptomatic. She denies any nausea vomiting, fever or chills, abdominal pain, diarrhea vomiting. Review of systems otherwise negative. Labs and vitals reviewed. Cough and shortness of breath have resolved. Patient's bilirubin noted to have trended down to 1.3. AST has trended down to 342 and ALT is at 419. ALT was 420 yesterday. ALP has remained within normal limits. Patient's hyperbilirubinemia appears to be more direct bilirubinemia as steroid bilirubin was elevated at 0.53 yesterday. Hepatitis panel and autoimmune panel still pending. Patient however informs hospitalist that she had a negative hepatitis B and C screen done by her tobacco feeder catcher in October 2017 after she had a last miscarriage. Hospitalist counseled patient that in light of her being stable and the downward trend of her liver enzymes, decision will be to discharge patient today. Hospitalist informed patient that she will call Dr. Vira Germain and set up a PCP appointment for the patient as early as possible, hopefully 09/16/2018 so the patient could be followed up in the results of the labs could be communicated to her if the lab results were ready then. Patient initially did seem agreeable but subsequently said that she did not think that she should be discharged because there was something going on with her liver and she did not know what was going on with it. Hospitalist explained to patient and her significant other that in light of the downward trend of her liver enzymes with patient being totally stable, as well as the negative gallbladder ultrasound wh ich showed no evidence of cholestasis, and showed enlarged liver with steatosis, patient could be followed up on outpatient basis for further work-up to be determined and also to await results of the hepatitis panel and autoimmune panel as SLE was strongly suspected and could explain her symptoms as well as the 2 miscarriages that she had had and the malar rash that she was present. Patient's significant other was not agreeable to this and was significantly upset as he did not think that whether patient was symptomatic or otherwise was relevant and wanted patient to stay in the hospital until we got the results of her autoimmune panel and hepatitis panel back. Hospitalist explained to patient and significant other that she had called the lab yesterday to follow-up on the labs and was told that as they were send out tests, it could not be determined exactly when the results could come back. Patient' significant other was still not agreeable and wanted to stay in the hospital for however long it took for the labs to come back. Hospitalist explained to patient and her significant other that staying longer in the hospital would not be a problem, but they needed to understand that it would just entail daily labs being done as there was no current active intervention going on in light of the cause of the elevated transaminases not being known. Patient and significant other then stated that they feel they had wasted 3 days in the hospital and so would want to stay as long as he took to get the labs back. They were also informed by hospitalist that the next week course of action if liver enzymes had continue trending upwards was to get patient to be followed up by cash posting representative or ecological economist. Hospital did not have a ecological economist or cash posting representative in house and since patient was currently totally stable, she could be followed up on outpatient basis as a referring facility was likely not going to accept patient in light of her being totally stable and asymptomatic. Patient and significant other were visibly upset and stated that they wanted a different hospitalist to take over the care of the patient. Hospitalist discussed case with Dr Robyn Dominguez, who will assume care of the patient. Vitals/I&O's: Vital Signs Temp Pulse Resp BP Pulse Ox 98.3 F 72 15 109/73 99 09/13/18 03:37 09/13/18 03:37 09/13/18 03:37 09/13/18 03:37 09/13/18 03:37 Oxygen Delivery Method Room Air Weight: 140 lb 6.951 oz Body Mass Index (BMI) 23.3 Intake and Output for Last 24 Hours 09/11/18 09/12/18 09/13/18 23:59 23:59 23:59 Intake Total 652 / 652 1837 60 / 60 Balance 652 / 652 1837 60 60 General: Alert, Oriented x3, Cooperative, No apparent distress HEENT: Atraumatic, PERRLA, EOMI, Normocephalic Oral: Moist Mucosa Neck: Supple, No JVD, Negative Carotid Bruits Lungs: Clear to auscultation, Normal air movement, No rhonchi, No wheeze, No rales Cardiovascular: Regular rate, Regular Rhythm, Normal S1, Normal S2, No murmurs Abdomen: Bowel Sounds Present, Soft, Non Tender, Non-Distended, No Hepato- splenomegaly Extremities: No clubbing, No cyanosis, No edema, Capillary Refill Less than 3 Seconds Skin: No breakdown, - - faint erythematous malar rash, sparing the nasolabial folds Musculoskeletal: No Tenderness to Palpation of Joints or Extremities Lymphatic: No Cervical, Supraclavicular, or Inguinal Adenopathy Neurological: Cranial nerves II-XII grossly intact, Neuro grossly intact, Motor Exam 5/5 strength throughout Psych/Mental Status: Normal Affect, Appropriate, Alert and oriented to time, place, person, mood and affect Microbiology Past 72 Hours 09/11/18 15:08 Stool Stool Occult Blood (NAVEEN) - Final Occult Blood Positive Laboratory Results 09/12/18 05:20: Differential Comment SCANNED, Platelet Estimate MOD 09/12/18 05:20: Direct Bilirubin 0.53 H 09/13/18 05:35: WBC 2.4 L, RBC 4.13 L, Hgb 12.6, Hct 37.0, MCV 89.6, MCH 30.5, MCHC 34.1, RDW Std Deviation 37.5, RDW Coeff of Michael 11.7, Plt Count 106 L, MPV 10.5, Immature Gran % (Auto) 0.400, Neut % (Auto) 56.6, Lymph % (Auto) 34.0, [place] % (Auto) 6.0, Eos % (Auto) 2.1, Baso % (Auto) 0.9, Absolute Neuts (auto) 1.3 L, Absolute Lymphs (auto) 0.80 L, Nucleated RBC % 0 09/13/18 05:35: Sodium 140, Potassium 4.2, Chloride 106, Carbon Dioxide 28.0, Anion Gap 6, BUN 11, Creatinine 0.77, Estim Creat Clear Calc 100.50, Est GFR (MDRD) Af Amer 117, Est GFR (MDRD) Non-Af 97, BUN/Creatinine Ratio 14.2, Glucose 87, Calcium 8.8, Total Bilirubin 1.30 H, AST 342 H, ALT 419 H, Alkaline Phosphatase 72, Total Protein 7.4, Albumin 3.1 L, Globulin 4.3 H, Albumin/Globulin Ratio 0.7 L Diagnostic Data Chest X-Ray 09/11/18 14:49 IMPRESSION: Normal x-ray examination of the chest. Electronically Signed: Braulio Kemar, at 15:25 EDT , Service support , Gallbladder Ultrasound 09/11/18 15:41 IMPRESSION: 1. Hepatomegaly with steatosis. 2. Decreased echogenicity of the pancreas, which is of uncertain etiology and significance. Overall, the visualized pancreas is normal in size and contour. Electronically Signed: Henry Norris MD at 16:43 EDT , Service support , Current Medications Azithromycin 500 mg/ Dextrose 255 mls @ 250 mls/hr IV Q24 JOVANI Stop: 09/13/18 11:02 Last Admin: 09/12/18 09:28 Dose: 250 mls/hr Documented by: Sodium Chloride () 250 mls @ 15 mls/hr IV .[id number] PRN PRN Reason: SALINE FLUSH Ondansetron HCl (Zofran) 4 mg IV Q8H PRN PRN PRN Reason: NAUSEA/VOMITING Last Admin: 09/11/18 22:11 Dose: 4 mg Documented by: Sodium Chloride () 10 - 40 ml IV UD PRN PRN Reason: SALINE FLUSH Last Admin: 09/12/18 16:52 Dose: 20 ml Documented by: Medical Necessity - Tobacco Use Smoking Status: Never smoker Tobacco Use: Non-smoker Assessment/Plan All Active Problems Pneumonitis (Acute) Hepatitis (Acute) 1. Probable pneumonitis * resolved. cough and SOB have resolved. * on IV azithromycin. WIll dc after today. * 2. Elevated transaminases * liver enzymes have started trending downwards * bilirubin down to 1.3; nad AST/ALT down to 342/419 from 396/420. ALT remains normal * gallbadder USG showed normal gallbladder, and showed hepatomegaly with steatosis, and decreased echogenicity of the pancreas of uncertain etiology and significance though overall the visualized pancreas was normal in size and contour * hepatitis screen and autoimmune panel still pending. * 3. Rectal bleeding * hasnt recurred since admission. stool for occult blood positive * general surgery on board; plan is for outpatient colonoscopy * 4. Probable autoimmune disease, likely SLE * patient complains of erythema over her cheeks, which worsens exposes to sunlight. Physical examination confirmed presence of a malar rash with sparing of the nasolabial folds. * And also had two miscarriages. Labs still show leukopenia and thrombocytopenia. * autoimmune panel is pending. * for follow up with rheumatology upon discharge * rheumatoid factor was negative, at <10 * 5. Leukopenia and thrombocytopenia * asymptomatic. wbc is 2.4, nad platelets are 106 today. Wbc is 2.3, and platelets are down to 96, from 104 on admission * this may be due to suspected autoimmune condition. * will monitor. DVT prophylaxis: SCDs Patient and significant other wish for different hospitalist to take care of patient because they don't agree with proposed plan of discharge, and want to stay in hospital till results of hepatitis screen and autoimmune panel are back. Dr Dominguez will be assuming care of patient. Code Visit OBSV E&M: 23172 Subsequent observation care L2
[2018-09-13 10:35] VITALS: BP 101/56; PULSE 75; RESP 14; TEMP 36.4; O2SAT 98
[2018-09-13 11:45] LABS: Hep C Antibodies <0.1 s/co ratio (0.0-0.9)
[2018-09-13] MEDS: oxyCODONE 5 MG Tablet PO (12:45)
--- NOTE | 2018-09-13 12:51 | PCM.PROGNOTE ---
Patient Problems: Active and Suspected Problems Thrombocytopenia (Acute) Leukopenia (Acute) Pneumonitis (Acute) Hepatitis (Acute) Subjective: The patient is a 23-year-old female who presented to the emergency department at [facility] on 09/11/2018 complaining of a 3-day history of a mostly dry cough associated with sore throat and some nasal congestion. She additionally complained of feeling short of breath. She denied fever or chills. She also had an episode of bright red rectal bleeding with red blood mixed with the stool, in the water and on the toilet paper. She does have a history of constipation and has had hemorrhoidal bleeding in the past. She denies any abdominal pain, nausea or vomiting. Vital signs at presentation to the emergency room were temperature 97.5, blood pressure 142/93, heart rate 84, respiratory rate 17 and she was 99% saturated on room air. CBC was significant for a decreased white blood cell count at 2.2, hemoglobin of 12.9 and platelets of 104,000. The differential was unremarkable. PT was within normal limits and the PTT was mildly increased at 48.2. D-dimer was normal. BMP was unremarkable. The total bilirubin was elevated at 1.4, alkaline phosphatase was normal and the AST was 323 with an ALT of 349. ESR was normal at 16 and the CRP was very mildly increased at 6.6. UA showed 0 WBCs per high-power field it was unremarkable. Gallbladder ultrasound was obtained and showed hepatomegaly with steatosis. There was also decreased echogenicity of the pancreas of uncertain etiology. Hepatitis panel was negative. She denies any recent [id number] or prescribed medications. She consumes only occasional social alcohol. She denied any illicit drug use. She does have tattoos. She was initially being cared for by Dr. Vela but, she was not happy and requested a new doctor. I have been asked by Dr. Vela to take over her care. Dr. Vela planned to DC the pt home because the W/U for autoimmune disorders is in progress and the test results will not be available for several days. She is afebrile and stable. Afebrile since admission Vital signs are stable Pulse ox is 98 to 99% on room air and she is not tachypneic. All lab was personally reviewed and all imaging. White blood cell count remains low at 2.4 and the platelet count is stable at 106,000. Bilirubin is mildly increased at 1.3 and there was an increase in direct bilirubin. GGTP is mildly increased at 80 and the AST is currently 342 with an ALT of 419. LDH is elevated at 285. Serum albumin is low at 3.1 but the globulin is increased at 4.3. HIV is nonreactive. Antimitochondrial antibodies and smooth muscle antibodies are pending. SID screen is also pending. EBV titers are pending. Stool was Hemoccult positive but this is suspected to be due to hemorrhoids. She states she occasionally has low-grade fevers at home. She denies any red swollen painful joints. She denies dysphagia. She has no rashes. She does complain of redness across her cheeks when she is out in the sun and when she drinks alcohol. It resolves in 1 to 2 days usually. She tells me that when her hands are exposed to cold they graham and get very painful. When her hands warm up they are very red. She states the nails have occasionally been cyanotic when this occurs. She denies any history of kidney disease. She denies any pleuritic chest pain. - Physical Exam General: Alert, Oriented x3, Cooperative, No apparent distress, Well developed, Well nourished HEENT: Atraumatic, PERRLA, EOMI, Normocephalic, - Oral: Moist Mucosa, No Gingival or Mucosal Lesions/ Ulcerations, - - No stomatitis, no evidence of pharyngitis, she does have heath on the hard palate Neck: Supple, No JVD, Negative Carotid Bruits, No Nodes, No Nuchal Rigidity, Trachea Midline Lungs: Clear to auscultation Cardiovascular: Regular rate, Regular Rhythm, Normal S1, Normal S2, No murmurs, No Ectopic Activity, No rub noted, No Gallop Abdomen: Bowel Sounds Present, Soft, Non Tender, Non-Distended, - - I did not appreciate any hepatosplenomegaly on my exam and there were no masses. There were no abdominal bruits. Extremities: No clubbing, No cyanosis, No edema, Peripheral Pulses Normal, - - No ecchymosis, no petechiae Skin: No rashes, No breakdown Musculoskeletal: No Muscle Wasting, - - There is no evidence of any erythema or swelling of joints and she has no entheitis. Vital Signs Temp Pulse Resp BP Pulse Ox 97.5 F L 75 14 101/56 L 98 09/13/18 10:35 09/13/18 10:35 09/13/18 10:35 09/13/18 10:35 09/13/18 10:35 Oxygen Delivery Method Room Air Weight: 140 lb 6.951 oz Body Mass Index (BMI) 23.3 Intake and Output for Last 24 Hours 09/11/18 09/12/18 09/13/18 23:59 23:59 23:59 Intake Total 652 / 652 1838 / 1838 600 / 600 Balance 652 / 652 1838 / 1838 600 / 600 Microbiology Past 72 Hours 09/11/18 15:08 Stool Occult Blood (NAVEEN) - Final Stool Occult Blood Positive Laboratory Tests Past 24 Hrs 09/11/18 09/11/18 09/13/18 15:00 15:58 05:35 WBC 2.4 L RBC 4.13 L Hgb 12.6 Hct 37.0 MCV 89.6 MCH 30.5 MCHC 34.1 RDW Std Deviation 37.5 RDW Coeff of Michael 11.7 Plt Count 106 L MPV 10.5 Immature Gran % (Auto) 0.400 Neut % (Auto) 56.6 Lymph % (Auto) 34.0 Borden % (Auto) 6.0 Eos % (Auto) 2.1 Baso % (Auto) 0.9 Absolute Neuts (auto) 1.3 L Absolute Lymphs (auto) 0.80 L Nucleated RBC % 0 Sodium Potassium Chloride Carbon Dioxide Anion Gap BUN Creatinine Estim Creat Clear Calc Est GFR (MDRD) Af Amer Est GFR (MDRD) Non-Af BUN/Creatinine Ratio Glucose Calcium Total Bilirubin AST ALT Alkaline Phosphatase Total Protein Albumin Globulin Albumin/Globulin Ratio Hepatitis A IgM Ab Negative Hep Bs Antigen Negative Hep B Core IgM Ab Negative Hepatitis C Ab (EIA) <0.1 HIV 1&2 Antibody Pending 09/13/18 05:35 WBC RBC Hgb Hct MCV MCH MCHC RDW Std Deviation RDW Coeff of Michael Plt Count MPV Immature Gran % (Auto) Neut % (Auto) Lymph % (Auto) Borden % (Auto) Eos % (Auto) Baso % (Auto) Absolute Neuts (auto) Absolute Lymphs (auto) Nucleated RBC % Sodium 140 Potassium 4.2 Chloride 106 Carbon Dioxide 28.0 Anion Gap 6 BUN 11 Creatinine 0.77 Estim Creat Clear Calc 100.50 Est GFR (MDRD) Af Amer 117 Est GFR (MDRD) Non-Af 97 BUN/Creatinine Ratio 14.2 Glucose 87 Calcium 8.8 Total Bilirubin 1.30 H AST 342 H ALT 419 H Alkaline Phosphatase 72 Total Protein 7.4 Albumin 3.1 L Globulin 4.3 H Albumin/Globulin Ratio 0.7 L Hepatitis A IgM Ab Hep Bs Antigen Hep B Core IgM Ab Hepatitis C Ab (EIA) HIV 1&2 Antibody Medical Necessity - Tobacco Use Smoking Status: Never smoker Tobacco Use: Non-smoker Assessment/Plan All Active Problems Thrombocytopenia (Acute) Leukopenia (Acute) Pneumonitis (Acute) Hepatitis (Acute) Impressions 1. Abnormal LFTs, leukopenia, thrombocytopenia with symptoms of URI recently -viral infection or SLE or autoimmune disease of the liver are in my differential. She does not look ill in any way and she is very anxious about having something seriously wrong. 2. Fatty infiltration of the liver present on ultrasound of the right upper quadrant 3. Viral URI suspected 4. Hematochezia-secondary to internal and external hemorrhoids....not a new finding 5. Leukopenia and thrombocytopenia-etiology unclear Add antimitochondrial antibodies and a CMV to current lab that is pending. Recheck CMP and CBC in the a.m. Metamucil 1 pkt with water BID Anusol suppositories twice daily x3 days DC in the AM if no other significant developments.
[2018-09-13 13:21] LABS: HIV - WCH Non-Reactive (Nonreactive)
[2018-09-13 13:26] LABS: GGTP 80 U/L (5-55); LDH 285 U/L (84-246)
[2018-09-13 13:43] LABS: Pathologist Review Reviewed
[2018-09-13 14:08] LABS: ANTINUCLEAR ANTIBODIES DIRECT Positive (Negative); Anti-Centromere B Ab <0.2 AI (0.0-0.9); Anti-Chromatin >8.0 AI (0.0-0.9); Anti-Jo <0.2 AI (0.0-0.9); Anti-Scleroderma-70 AB <0.2 AI (0.0-0.9); RNP Ab 2.5 AI (0.0-0.9); SJOGREN'S Anti-SS-A test < 0.2 AI (0.0-0.9); SJOGREN'S Anti-SS-B test < 0.2 AI (0.0-0.9); Smith Ab >8.0 AI (0.0-0.9)
[2018-09-13 16:08] LABS: Cytoplasmic Ab (C-ANCA) <1:20 titer (Neg:<1:20)
[2018-09-13 16:35] VITALS: BP 120/78; PULSE 76; RESP 12; TEMP 37.5; O2SAT 99
[2018-09-13] MEDS: Psyllium 1 PACKET PO ×2 (16:41→21:26)
[2018-09-13 21:25] VITALS: BP 110/75; PULSE 66; RESP 18; TEMP 36.7; O2SAT 99
[2018-09-13] MEDS: Hydrocortisone 25 MG Suppository RECTAL (21:57)
[2018-09-14 03:25] VITALS: BP 114/73; PULSE 78; RESP 16; TEMP 36.5; O2SAT 99
[2018-09-14 06:14] LABS: Amphetamine Urine VISTA NEGATIVE (<1000 ng/mL); Barbiturate Urine VISTA NEGATIVE (< 200 ng/mL); Benzodiazepine Urine VISTA NEGATIVE (< 200 ng/mL); Cocaine Urine VISTA NEGATIVE (< 300 ng/mL); Ecstacy Urine VISTA NEGATIVE (< 500 ng/mL); Methadone Urine VISTA NEGATIVE (< 300 ng/mL); PCP Urine VISTA NEGATIVE (< 25 ng/mL); THC Urine VISTA NEGATIVE (< 50 ng/mL); Vista UDS pH Range 5
[2018-09-14 07:55] VITALS: BP 127/89; PULSE 78; RESP 16; TEMP 36.8; O2SAT 98
[2018-09-14 08:10] LABS: Absolute Lymphocyte Count 0.57 X10^3/uL (0.83-4.51); Absolute Neutrophil Count 2.3 X10^3/uL (2.0-7.7); Basophil# 0.02 X10^3/uL; Basophil% 0.7 % (0-1); Eosinophil# 0.05 X10^3/uL; Eosinophils% 1.6 % (0-5); Hematocrit 42.5 % (37-47); Hemoglobin 14.7 g/dL (12.0-15.0); Lymphocyte # 0.57 X10^3/ul (4.0); Lymphocyte % 18.7 % (19-41); Mean Corp Hgb Conc 34.6 g/dL (32-36); Mean Corpuscular Hgb 30.6 pg (27.0-32.0); Mean Corpuscular Volume 88.5 fL (81-99); Mean Platelet Vol. 10.6 fl (6.2-12.0); Monocyte# 0.14 X10^3/uL; Monocyte% 4.6 % (0-10); NRBC Flagged by Analyzer 0 % (0-5); Neutrophil # 2.26 X10^3/uL (2.7-7.7); Neutrophil % 74.1 % (47-70); POSITIVE DIFFERENTIAL YES; Platelet Count 136 K/mm3 (150-450); RBC Distribution Width CV 11.5 % (11.6-14.6); RBC Distribution Width SD 37.1 fl (35.1-43.9); White Blood Count 3.1 K/mm3 (4.4-11.0)
[2018-09-14 08:22] LABS: Differential Indicated SCAN CRITERIA MET
[2018-09-14 08:27] LABS: Prothrombin Time (Protime)PT. 12.5 SECONDS (11.7-14.9)
[2018-09-14 08:29] LABS: ALB/GLOB Ratio 0.7 RATIO (0.9-2.4); AST(SGOT) 337 U/L (15-37); Alanine Aminotransfer ALT/SGPT 469 U/L (13-56); Albumin, Serum 3.4 g/dL (3.2-5.0); Alkaline Phosphatase 82 U/L (45-117); Anion Gap 6 (5-15); BUN 10 mg/dL (7-18); BUN/Creat Ratio 14.3 RATIO (10-20); Calcium,Total 9.3 mg/dL (8.5-10.1); Chloride 105 mmol/L (98-107); Cholesterol 233 mg/dL (200); EST Glomerular Filtration Rate 108 mL/min (>60); Est Glom Filt Rate - Afr Amer 131 mL/min (>60); Estimated Creatinine Clearance 110.55 ml/min; Glucose 96 mg/dL (74-106); High Density Lipoprotein 38 mg/dL; Potassium 4.7 mmol/L (3.5-5.1); Protein, Total 8.4 g/dL (6.4-8.2); Sodium Level 138 mmol/L (136-145); Triglycerides 174 mg/dL; Very Low Density Lipoprotein 35 mg/dL (5-40)
[2018-09-14] MEDS: Psyllium 1 PACKET PO (10:05)
[2018-09-14] MEDS: Hydrocortisone 25 MG Suppository RECTAL (10:05)
--- NOTE | 2018-09-14 13:18 | DCINST_ITS ---
- Discharge Diagnoses Current Active Problems: Current Active and Chronic Problems Pneumonitis (Acute) Hepatitis (Acute) You will use the following diet at home:: Other - Low-fat Your liquids should be the consistency of: Regular/Thin Discharge Activity: - - gradually return to normal activity Return to work on:: 09/23/18 Call your doctor if you observe: Fever of 101 or Higher, Swelling in the ankles, - - yellow eyes, yellow skin/jaundice, dark colored urine Instructions: Non-Alcoholic Fatty Liver Disease (NAFLD) Additional Instructions: 1. I think it is possible that the abnormalities in the blood counts and the liver tests are due to a virus. The white blood cell count and the platelets are increasing without treatment. The platelets and white blood cell count are almost normal today. The respiratory panel is negative for virues that are associated with the common cold. There are MANY tests pending....for lupus, CMV virus, mononucleosis, other autoimmune diseases that affect the liver, etc. These tests are all send outs and will not be back until the middle of the week next week. Dr. Germain can discuss the results with you at your appt next week. The ultrasound of the liver shows fatty infiltration of the liver and a mildly enlarged liver. you cholesterol is high and this can cause fatty infiltration of the liver. You should stick to a low fat diet. You may be a candidate for a cholesterol lowering drug in the future and this can be discussed with Dr. Germain after the results of all the testing is available. Pending Tests on Discharge: many Allergies/Adverse Reactions: Allergies Latex, Natural Rubber Allergy (Verified 09/11/18 13:41) Rash Penicillins Allergy (Verified 09/11/18 13:41) Rash shellfish derived Allergy (Verified 09/11/18 13:41) Angioedema tree nut Allergy (Verified 09/11/18 13:41) Swelling red dye Adverse Reaction (Verified 09/11/18 13:41) Vomiting Medications to take at Discharge Hydrocortisone [Anusol Hc] 25 mg RECTAL BID PRN PRN #12 suppos. 09/14/18 The following prescriptions were given: Hydrocortisone [Anusol Hc] 25 mg RECTAL BID PRN PRN #12 suppos. PRN Reason: Hemorrhoids Prescription Printed Primary Care Physician: Care Physician,No Primary [Primary Care Provider] - Please follow up with your Primary Care Physician in: has appt with Dr. Germain 09/20/18 Test Results: Test results from this visit will be discussed in further detail at your follow- up appointment, if applicable. Proposed Discharge Date: 09/14/18
[2018-09-14 13:32] VITALS: BP 138/94; PULSE 85; RESP 16; TEMP 36.7; O2SAT 99
--- NOTE | 2018-09-14 13:55 | DS.PCM_ITS ---
Discharge Date and Diagnosis - Problem List Patient Problems: Active and Suspected Problems Thrombocytopenia (Acute) Leukopenia (Acute) Pneumonitis (Acute) Hepatitis (Acute) Date of Admission: 09/11/18 Date of Discharge: 09/14/18 - Primary Discharge Diagnosis Active and Suspected Problems Thrombocytopenia (Acute) Leukopenia (Acute) Pneumonitis (Acute) Hepatitis (Acute) - unclear etiology Hematochezia-likely secondary to hemorrhoidal disease - Secondary Discharge Diagnosis Chronic Problems Hyperlipidemia (Chronic) Hepatic steatosis (Chronic) Irritable bowel syndrome Hospital Course and Treatment Imaging Results: Clinical Impression(s) from Imaging Studies Chest X-Ray 09/11/18 14:49 IMPRESSION: Normal x-ray examination of the chest. Electronically Signed: Braulio Reinoso, at 15:25 EDT , Service support , Gallbladder Ultrasound 09/11/18 15:41 IMPRESSION: 1. Hepatomegaly with steatosis. 2. Decreased echogenicity of the pancreas, which is of uncertain etiology and significance. Overall, the visualized pancreas is normal in size and contour. Electronically Signed: Henry Norris MD at 16:43 EDT , Service support , Laboratory Tests 09/14/18 09/14/18 09/14/18 Range/Units 07:40 07:40 07:40 WBC 3.1 L (4.4-11.0) K/mm3 RBC 4.80 (4.2-5.4) M/mm3 Hgb 14.7 (12.0-15.0) g/dL Hct 42.5 (37-47) % MCV 88.5 (81-99) fL MCH 30.6 (27.0-32.0) pg MCHC 34.6 (32-36) g/dL RDW Std Deviation 37.1 (35.1-43.9) fl RDW Coeff of Michael 11.5 L (11.6-14.6) % Plt Count 136 L (150-450) K/mm3 MPV 10.6 (6.2-12.0) fl Immature Gran % (Auto) 0.300 (0.0-0.9) % Neut % (Auto) 74.1 H (47-70) % Lymph % (Auto) 18.7 L (19-41) % [place] % (Auto) 4.6 (0-10) % Eos % (Auto) 1.6 (0-5) % Baso % (Auto) 0.7 (0-1) % Absolute Neuts (auto) 2.3 (2.0-7.7) X10^3/uL Absolute Lymphs (auto) 0.57 L (0.83-4.51) X10^3/uL Nucleated RBC % 0 (0-5) % Differential Comment Diff Path Review May foll Platelet Estimate (ADEQ) ESR (0-20) mm/hr PT 12.5 (11.7-14.9) SECONDS INR 1.0 APTT (24.1-36.2) Seconds D-Dimer Quant (PE/DVT) (0.27-0.49) FEU/ug/m Sodium 138 (136-145) mmol/L Potassium 4.7 (3.5-5.1) mmol/L Chloride 105 (98-107) mmol/L Carbon Dioxide 27.0 (21.0-32.0) mmol/L Anion Gap 6 (5-15) BUN 10 (7-18) mg/dL Creatinine 0.70 (0.55-1.02) mg/dL Estim Creat Clear Calc 110.55 ml/min Est GFR (MDRD) Af Amer 131 (>60) mL/min Est GFR (MDRD) Non-Af 108 (>60) mL/min BUN/Creatinine Ratio 14.3 (10-20) RATIO Glucose 96 (74-106) mg/dL Calcium 9.3 (8.5-10.1) mg/dL Total Bilirubin 1.00 (0.20-1.00) mg/dL Direct Bilirubin (0.00-0.30) mg/dL GGT (5-55) U/L AST 337 H (15-37) U/L ALT 469 H (13-56) U/L Alkaline Phosphatase 82 (45-117) U/L Lactate Dehydrogenase (84-246) U/L C-React Prot Ext Range (0.0-3.0) mg/L Total Protein 8.4 H (6.4-8.2) g/dL Albumin 3.4 (3.2-5.0) g/dL Globulin 5.0 H (2.2-4.2) g/dL Albumin/Globulin Ratio 0.7 L (0.9-2.4) RATIO Triglycerides 174 ( - 199) mg/dL Cholesterol 233 H (200) mg/dL LDL Cholesterol 160 H (0-130) mg/dL VLDL Cholesterol 35 (5-40) mg/dL HDL Cholesterol 38 L (40 - ) mg/dL Lipase (73-393) U/L Serum , Qual Negative Urine Color (Yellow) Urine Clarity (Clear) Urine pH (5.0 - 8.0) Ur Specific [place] (1.002-1.030) Urine Protein (Negative) mg/dl Urine Glucose (UA) (Normal) mg/dl Urine Ketones (Negative) mg/dl Urine Occult Blood (Negative) /ul Urine Nitrite (Negative) Urine Bilirubin (Negative) mg/dL Urine Urobilinogen (Normal) mg/dl Ur Leukocyte Esterase (Negative) /ul Urine RBC (0-5) /hpf Urine WBC (0-5) /hpf Ur Squamous Epith Cells (5-10) /hpf Urine Bacteria (None Seen) /hpf Urine Mucus (<or=2+) /hpf Urine Opiates Screen (< 300 ng/mL) Urine Methadone Screen (< 300 ng/mL) Ur Barbiturates Screen (< 200 ng/mL) Ur Phencyclidine Scrn (< 25 ng/mL) Ur Amphetamines Screen (<1000 ng/mL) U Methamphetamin-MDMA (< 500 ng/mL) U Benzodiazepines Scrn (< 200 ng/mL) Urine Cocaine Screen (< 300 ng/mL) U Cannabinoids Screen (< 50 ng/mL) Ur Drug Screen Comment Rheumatoid Factor (<15) IU/mL Hepatitis A IgM Ab (Negative) Hep Bs Antigen (Negative) Hep B Core IgM Ab (Negative) Hepatitis C Ab (EIA) (0.0-0.9) s/co ratio HIV 1&2 Antibody (Nonreactive) 09/14/18 09/13/18 09/13/18 Range/Units 05:45 05:35 05:35 WBC (4.4-11.0) K/mm3 RBC (4.2-5.4) M/mm3 Hgb (12.0-15.0) g/dL Hct (37-47) % MCV (81-99) fL MCH (27.0-32.0) pg MCHC (32-36) g/dL RDW Std Deviation (35.1-43.9) fl RDW Coeff of Michael (11.6-14.6) % Plt Count (150-450) K/mm3 MPV (6.2-12.0) fl Immature Gran % (Auto) (0.0-0.9) % Neut % (Auto) (47-70) % Lymph % (Auto) (19-41) % [place] % (Auto) (0-10) % Eos % (Auto) (0-5) % Baso % (Auto) (0-1) % Absolute Neuts (auto) (2.0-7.7) X10^3/uL Absolute Lymphs (auto) (0.83-4.51) X10^3/uL Nucleated RBC % (0-5) % Differential Comment Diff Path Review Platelet Estimate (ADEQ) ESR (0-20) mm/hr PT (11.7-14.9) SECONDS INR APTT (24.1-36.2) Seconds D-Dimer Quant (PE/DVT) (0.27-0.49) FEU/ug/m Sodium 140 (136-145) mmol/L Potassium 4.2 (3.5-5.1) mmol/L Chloride 106 (98-107) mmol/L Carbon Dioxide 28.0 (21.0-32.0) mmol/L Anion Gap 6 (5-15) BUN 11 (7-18) mg/dL Creatinine 0.77 (0.55-1.02) mg/dL Estim Creat Clear Calc 100.50 ml/min Est GFR (MDRD) Af Amer 117 (>60) mL/min Est GFR (MDRD) Non-Af 97 (>60) mL/min BUN/Creatinine Ratio 14.2 (10-20) RATIO Glucose 87 (74-106) mg/dL Calcium 8.8 (8.5-10.1) mg/dL Total Bilirubin 1.30 H (0.20-1.00) mg/dL Direct Bilirubin (0.00-0.30) mg/dL GGT 80 H (5-55) U/L AST 342 H (15-37) U/L ALT 419 H (13-56) U/L Alkaline Phosphatase 72 (45-117) U/L Lactate Dehydrogenase 285 H (84-246) U/L C-React Prot Ext Range (0.0-3.0) mg/L Total Protein 7.4 (6.4-8.2) g/dL Albumin 3.1 L (3.2-5.0) g/dL Globulin 4.3 H (2.2-4.2) g/dL Albumin/Globulin Ratio 0.7 L (0.9-2.4) RATIO Triglycerides ( - 199) mg/dL Cholesterol (200) mg/dL LDL Cholesterol (0-130) mg/dL VLDL Cholesterol (5-40) mg/dL HDL Cholesterol (40 - ) mg/dL Lipase (73-393) U/L Serum , Qual Negative Urine Color (Yellow) Urine Clarity (Clear) Urine pH (5.0 - 8.0) Ur Specific [place] (1.002-1.030) Urine Protein (Negative) mg/dl Urine Glucose (UA) (Normal) mg/dl Urine Ketones (Negative) mg/dl Urine Occult Blood (Negative) /ul Urine Nitrite (Negative) Urine Bilirubin (Negative) mg/dL Urine Urobilinogen (Normal) mg/dl Ur Leukocyte Esterase (Negative) /ul Urine RBC (0-5) /hpf Urine WBC (0-5) /hpf Ur Squamous Epith Cells (5-10) /hpf Urine Bacteria (None Seen) /hpf Urine Mucus (<or=2+) /hpf Urine Opiates Screen NEGATIVE (< 300 ng/mL) Urine Methadone Screen NEGATIVE (< 300 ng/mL) Ur Barbiturates Screen NEGATIVE (< 200 ng/mL) Ur Phencyclidine Scrn NEGATIVE (< 25 ng/mL) Ur Amphetamines Screen NEGATIVE (<1000 ng/mL) U Methamphetamin-MDMA NEGATIVE (< 500 ng/mL) U Benzodiazepines Scrn NEGATIVE (< 200 ng/mL) Urine Cocaine Screen NEGATIVE (< 300 ng/mL) U Cannabinoids Screen NEGATIVE (< 50 ng/mL) Ur Drug Screen Comment Rheumatoid Factor (<15) IU/mL Hepatitis A IgM Ab (Negative) Hep Bs Antigen (Negative) Hep B Core IgM Ab (Negative) Hepatitis C Ab (EIA) (0.0-0.9) s/co ratio HIV 1&2 Antibody (Nonreactive) 09/13/18 09/12/18 09/12/18 Range/Units 05:35 05:20 05:20 WBC 2.4 L (4.4-11.0) K/mm3 RBC 4.13 L (4.2-5.4) M/mm3 Hgb 12.6 (12.0-15.0) g/dL Hct 37.0 (37-47) % MCV 89.6 (81-99) fL MCH 30.5 (27.0-32.0) pg MCHC 34.1 (32-36) g/dL RDW Std Deviation 37.5 (35.1-43.9) fl RDW Coeff of Michael 11.7 (11.6-14.6) % Plt Count 106 L (150-450) K/mm3 MPV 10.5 (6.2-12.0) fl Immature Gran % (Auto) 0.400 (0.0-0.9) % Neut % (Auto) 56.6 (47-70) % Lymph % (Auto) 34.0 (19-41) % [place] % (Auto) 6.0 (0-10) % Eos % (Auto) 2.1 (0-5) % Baso % (Auto) 0.9 (0-1) % Absolute Neuts (auto) 1.3 L (2.0-7.7) X10^3/uL Absolute Lymphs (auto) 0.80 L (0.83-4.51) X10^3/uL Nucleated RBC % 0 (0-5) % Differential Comment Diff Path Review Platelet Estimate (ADEQ) ESR (0-20) mm/hr PT (11.7-14.9) SECONDS INR APTT (24.1-36.2) Seconds D-Dimer Quant (PE/DVT) (0.27-0.49) FEU/ug/m Sodium 140 (136-145) mmol/L Potassium 4.1 (3.5-5.1) mmol/L Chloride 107 (98-107) mmol/L Carbon Dioxide 27.0 (21.0-32.0) mmol/L Anion Gap 6 (5-15) BUN 10 (7-18) mg/dL Creatinine 0.85 (0.55-1.02) mg/dL Estim Creat Clear Calc 91.04 ml/min Est GFR (MDRD) Af Amer 104 (>60) mL/min Est GFR (MDRD) Non-Af 86 (>60) mL/min BUN/Creatinine Ratio 11.7 (10-20) RATIO Glucose 82 (74-106) mg/dL Calcium 8.9 (8.5-10.1) mg/dL Total Bilirubin 1.60 H (0.20-1.00) mg/dL Direct Bilirubin 0.53 H (0.00-0.30) mg/dL GGT (5-55) U/L AST 396 H (15-37) U/L ALT 420 H (13-56) U/L Alkaline Phosphatase 83 (45-117) U/L Lactate Dehydrogenase (84-246) U/L C-React Prot Ext Range (0.0-3.0) mg/L Total Protein 7.9 (6.4-8.2) g/dL Albumin 3.3 (3.2-5.0) g/dL Globulin 4.6 H (2.2-4.2) g/dL Albumin/Globulin Ratio 0.7 L (0.9-2.4) RATIO Triglycerides ( - 199) mg/dL Cholesterol (200) mg/dL LDL Cholesterol (0-130) mg/dL VLDL Cholesterol (5-40) mg/dL HDL Cholesterol (40 - ) mg/dL Lipase (73-393) U/L Serum , Qual Negative Urine Color (Yellow) Urine Clarity (Clear) Urine pH (5.0 - 8.0) Ur Specific [place] (1.002-1.030) Urine Protein (Negative) mg/dl Urine Glucose (UA) (Normal) mg/dl Urine Ketones (Negative) mg/dl Urine Occult Blood (Negative) /ul Urine Nitrite (Negative) Urine Bilirubin (Negative) mg/dL Urine Urobilinogen (Normal) mg/dl Ur Leukocyte Esterase (Negative) /ul Urine RBC (0-5) /hpf Urine WBC (0-5) /hpf Ur Squamous Epith Cells (5-10) /hpf Urine Bacteria (None Seen) /hpf Urine Mucus (<or=2+) /hpf Urine Opiates Screen (< 300 ng/mL) Urine Methadone Screen (< 300 ng/mL) Ur Barbiturates Screen (< 200 ng/mL) Ur Phencyclidine Scrn (< 25 ng/mL) Ur Amphetamines Screen (<1000 ng/mL) U Methamphetamin-MDMA (< 500 ng/mL) U Benzodiazepines Scrn (< 200 ng/mL) Urine Cocaine Screen (< 300 ng/mL) U Cannabinoids Screen (< 50 ng/mL) Ur Drug Screen Comment Rheumatoid Factor (<15) IU/mL Hepatitis A IgM Ab (Negative) Hep Bs Antigen (Negative) Hep B Core IgM Ab (Negative) Hepatitis C Ab (EIA) (0.0-0.9) s/co ratio HIV 1&2 Antibody (Nonreactive) 09/12/18 09/11/18 09/11/18 Range/Units 05:20 22:28 15:58 WBC 2.3 L (4.4-11.0) K/mm3 RBC 4.11 L (4.2-5.4) M/mm3 Hgb 12.4 (12.0-15.0) g/dL Hct 36.9 L (37-47) % MCV 89.8 (81-99) fL MCH 30.2 (27.0-32.0) pg MCHC 33.6 (32-36) g/dL RDW Std Deviation 38.5 (35.1-43.9) fl RDW Coeff of Michael 11.8 (11.6-14.6) % Plt Count 96 L (150-450) K/mm3 MPV 11.1 (6.2-12.0) fl Immature Gran % (Auto) 0.400 (0.0-0.9) % Neut % (Auto) 60.0 (47-70) % Lymph % (Auto) 29.6 (19-41) % [place] % (Auto) 6.5 (0-10) % Eos % (Auto) 2.6 (0-5) % Baso % (Auto) 0.9 (0-1) % Absolute Neuts (auto) 1.4 L (2.0-7.7) X10^3/uL Absolute Lymphs (auto) 0.68 L (0.83-4.51) X10^3/uL Nucleated RBC % 0 (0-5) % Differential Comment SCANNED Diff Path Review Platelet Estimate MOD DEC (ADEQ) ESR (0-20) mm/hr PT (11.7-14.9) SECONDS INR APTT (24.1-36.2) Seconds D-Dimer Quant (PE/DVT) (0.27-0.49) FEU/ug/m Sodium (136-145) mmol/L Potassium (3.5-5.1) mmol/L Chloride (98-107) mmol/L Carbon Dioxide (21.0-32.0) mmol/L Anion Gap (5-15) BUN (7-18) mg/dL Creatinine (0.55-1.02) mg/dL Estim Creat Clear Calc ml/min Est GFR (MDRD) Af Amer (>60) mL/min Est GFR (MDRD) Non-Af (>60) mL/min BUN/Creatinine Ratio (10-20) RATIO Glucose (74-106) mg/dL Calcium (8.5-10.1) mg/dL Total Bilirubin (0.20-1.00) mg/dL Direct Bilirubin (0.00-0.30) mg/dL GGT (5-55) U/L AST (15-37) U/L ALT (13-56) U/L Alkaline Phosphatase (45-117) U/L Lactate Dehydrogenase (84-246) U/L C-React Prot Ext Range (0.0-3.0) mg/L Total Protein (6.4-8.2) g/dL Albumin (3.2-5.0) g/dL Globulin (2.2-4.2) g/dL Albumin/Globulin Ratio (0.9-2.4) RATIO Triglycerides ( - 199) mg/dL Cholesterol (200) mg/dL LDL Cholesterol (0-130) mg/dL VLDL Cholesterol (5-40) mg/dL HDL Cholesterol (40 - ) mg/dL Lipase (73-393) U/L Serum , Qual Negative Urine Color Yellow (Yellow) Urine Clarity Clear (Clear) Urine pH 6.5 (5.0 - 8.0) Ur Specific [place] 1.010 (1.002-1.030) Urine Protein Negative (Negative) mg/dl Urine Glucose (UA) Normal (Normal) mg/dl Urine Ketones Negative (Negative) mg/dl Urine Occult Blood 50 H (Negative) /ul Urine Nitrite Negative (Negative) Urine Bilirubin Negative (Negative) mg/dL Urine Urobilinogen Normal (Normal) mg/dl Ur Leukocyte Esterase Negative (Negative) /ul Urine RBC 0 SEEN (0-5) /hpf Urine WBC 0 SEEN (0-5) /hpf Ur Squamous Epith Cells 0-5 SEEN (5-10) /hpf Urine Bacteria 0 SEEN (None Seen) /hpf Urine Mucus 0 SEEN (<or=2+) /hpf Urine Opiates Screen (< 300 ng/mL) Urine Methadone Screen (< 300 ng/mL) Ur Barbiturates Screen (< 200 ng/mL) Ur Phencyclidine Scrn (< 25 ng/mL) Ur Amphetamines Screen (<1000 ng/mL) U Methamphetamin-MDMA (< 500 ng/mL) U Benzodiazepines Scrn (< 200 ng/mL) Urine Cocaine Screen (< 300 ng/mL) U Cannabinoids Screen (< 50 ng/mL) Ur Drug Screen Comment Rheumatoid Factor (<15) IU/mL Hepatitis A IgM Ab Negative (Negative) Hep Bs Antigen Negative (Negative) Hep B Core IgM Ab Negative (Negative) Hepatitis C Ab (EIA) <0.1 (0.0-0.9) s/co ratio HIV 1&2 Antibody (Nonreactive) 09/11/18 09/11/18 09/11/18 Range/Units 15:00 15:00 15:00 WBC (4.4-11.0) K/mm3 RBC (4.2-5.4) M/mm3 Hgb (12.0-15.0) g/dL Hct (37-47) % MCV (81-99) fL MCH (27.0-32.0) pg MCHC (32-36) g/dL RDW Std Deviation (35.1-43.9) fl RDW Coeff of Michael (11.6-14.6) % Plt Count (150-450) K/mm3 MPV (6.2-12.0) fl Immature Gran % (Auto) (0.0-0.9) % Neut % (Auto) (47-70) % Lymph % (Auto) (19-41) % [place] % (Auto) (0-10) % Eos % (Auto) (0-5) % Baso % (Auto) (0-1) % Absolute Neuts (auto) (2.0-7.7) X10^3/uL Absolute Lymphs (auto) (0.83-4.51) X10^3/uL Nucleated RBC % (0-5) % Differential Comment Diff Path Review Platelet Estimate (ADEQ) ESR (0-20) mm/hr PT (11.7-14.9) SECONDS INR APTT (24.1-36.2) Seconds D-Dimer Quant (PE/DVT) 0.27 (0.27-0.49) FEU/ug/m Sodium (136-145) mmol/L Potassium (3.5-5.1) mmol/L Chloride (98-107) mmol/L Carbon Dioxide (21.0-32.0) mmol/L Anion Gap (5-15) BUN (7-18) mg/dL Creatinine (0.55-1.02) mg/dL Estim Creat Clear Calc ml/min Est GFR (MDRD) Af Amer (>60) mL/min Est GFR (MDRD) Non-Af (>60) mL/min BUN/Creatinine Ratio (10-20) RATIO Glucose (74-106) mg/dL Calcium (8.5-10.1) mg/dL Total Bilirubin (0.20-1.00) mg/dL Direct Bilirubin (0.00-0.30) mg/dL GGT (5-55) U/L AST (15-37) U/L ALT (13-56) U/L Alkaline Phosphatase (45-117) U/L Lactate Dehydrogenase (84-246) U/L C-React Prot Ext Range 6.60 H (0.0-3.0) mg/L Total Protein (6.4-8.2) g/dL Albumin (3.2-5.0) g/dL Globulin (2.2-4.2) g/dL Albumin/Globulin Ratio (0.9-2.4) RATIO Triglycerides ( - 199) mg/dL Cholesterol (200) mg/dL LDL Cholesterol (0-130) mg/dL VLDL Cholesterol (5-40) mg/dL HDL Cholesterol (40 - ) mg/dL Lipase (73-393) U/L Serum , Qual Negative Urine Color (Yellow) Urine Clarity (Clear) Urine pH (5.0 - 8.0) Ur Specific [place] (1.002-1.030) Urine Protein (Negative) mg/dl Urine Glucose (UA) (Normal) mg/dl Urine Ketones (Negative) mg/dl Urine Occult Blood (Negative) /ul Urine Nitrite (Negative) Urine Bilirubin (Negative) mg/dL Urine Urobilinogen (Normal) mg/dl Ur Leukocyte Esterase (Negative) /ul Urine RBC (0-5) /hpf Urine WBC (0-5) /hpf Ur Squamous Epith Cells (5-10) /hpf Urine Bacteria (None Seen) /hpf Urine Mucus (<or=2+) /hpf Urine Opiates Screen (< 300 ng/mL) Urine Methadone Screen (< 300 ng/mL) Ur Barbiturates Screen (< 200 ng/mL) Ur Phencyclidine Scrn (< 25 ng/mL) Ur Amphetamines Screen (<1000 ng/mL) U Methamphetamin-MDMA (< 500 ng/mL) U Benzodiazepines Scrn (< 200 ng/mL) Urine Cocaine Screen (< 300 ng/mL) U Cannabinoids Screen (< 50 ng/mL) Ur Drug Screen Comment Rheumatoid Factor < 10.0 (<15) IU/mL Hepatitis A IgM Ab (Negative) Hep Bs Antigen (Negative) Hep B Core IgM Ab (Negative) Hepatitis C Ab (EIA) (0.0-0.9) s/co ratio HIV 1&2 Antibody Non-Reactive (Nonreactive) 09/11/18 09/11/18 09/11/18 Range/Units 15:00 15:00 15:00 WBC (4.4-11.0) K/mm3 RBC (4.2-5.4) M/mm3 Hgb (12.0-15.0) g/dL Hct (37-47) % MCV (81-99) fL MCH (27.0-32.0) pg MCHC (32-36) g/dL RDW Std Deviation (35.1-43.9) fl RDW Coeff of Michael (11.6-14.6) % Plt Count (150-450) K/mm3 MPV (6.2-12.0) fl Immature Gran % (Auto) (0.0-0.9) % Neut % (Auto) (47-70) % Lymph % (Auto) (19-41) % [place] % (Auto) (0-10) % Eos % (Auto) (0-5) % Baso % (Auto) (0-1) % Absolute Neuts (auto) (2.0-7.7) X10^3/uL Absolute Lymphs (auto) (0.83-4.51) X10^3/uL Nucleated RBC % (0-5) % Differential Comment Diff Path Review Platelet Estimate (ADEQ) ESR 16 (0-20) mm/hr PT 12.6 (11.7-14.9) SECONDS INR 1.0 APTT 48.2 H (24.1-36.2) Seconds D-Dimer Quant (PE/DVT) (0.27-0.49) FEU/ug/m Sodium (136-145) mmol/L Potassium (3.5-5.1) mmol/L Chloride (98-107) mmol/L Carbon Dioxide (21.0-32.0) mmol/L Anion Gap (5-15) BUN (7-18) mg/dL Creatinine (0.55-1.02) mg/dL Estim Creat Clear Calc ml/min Est GFR (MDRD) Af Amer (>60) mL/min Est GFR (MDRD) Non-Af (>60) mL/min BUN/Creatinine Ratio (10-20) RATIO Glucose (74-106) mg/dL Calcium (8.5-10.1) mg/dL Total Bilirubin (0.20-1.00) mg/dL Direct Bilirubin (0.00-0.30) mg/dL GGT (5-55) U/L AST (15-37) U/L ALT (13-56) U/L Alkaline Phosphatase (45-117) U/L Lactate Dehydrogenase (84-246) U/L C-React Prot Ext Range (0.0-3.0) mg/L Total Protein (6.4-8.2) g/dL Albumin (3.2-5.0) g/dL Globulin (2.2-4.2) g/dL Albumin/Globulin Ratio (0.9-2.4) RATIO Triglycerides ( - 199) mg/dL Cholesterol (200) mg/dL LDL Cholesterol (0-130) mg/dL VLDL Cholesterol (5-40) mg/dL HDL Cholesterol (40 - ) mg/dL Lipase 71 L (73-393) U/L Serum , Qual Negative Urine Color (Yellow) Urine Clarity (Clear) Urine pH (5.0 - 8.0) Ur Specific [place] (1.002-1.030) Urine Protein (Negative) mg/dl Urine Glucose (UA) (Normal) mg/dl Urine Ketones (Negative) mg/dl Urine Occult Blood (Negative) /ul Urine Nitrite (Negative) Urine Bilirubin (Negative) mg/dL Urine Urobilinogen (Normal) mg/dl Ur Leukocyte Esterase (Negative) /ul Urine RBC (0-5) /hpf Urine WBC (0-5) /hpf Ur Squamous Epith Cells (5-10) /hpf Urine Bacteria (None Seen) /hpf Urine Mucus (<or=2+) /hpf Urine Opiates Screen (< 300 ng/mL) Urine Methadone Screen (< 300 ng/mL) Ur Barbiturates Screen (< 200 ng/mL) Ur Phencyclidine Scrn (< 25 ng/mL) Ur Amphetamines Screen (<1000 ng/mL) U Methamphetamin-MDMA (< 500 ng/mL) U Benzodiazepines Scrn (< 200 ng/mL) Urine Cocaine Screen (< 300 ng/mL) U Cannabinoids Screen (< 50 ng/mL) Ur Drug Screen Comment Rheumatoid Factor (<15) IU/mL Hepatitis A IgM Ab (Negative) Hep Bs Antigen (Negative) Hep B Core IgM Ab (Negative) Hepatitis C Ab (EIA) (0.0-0.9) s/co ratio HIV 1&2 Antibody (Nonreactive) 09/11/18 09/11/18 09/11/18 Range/Units 15:00 15:00 15:00 WBC 2.2 L (4.4-11.0) K/mm3 RBC 4.28 (4.2-5.4) M/mm3 Hgb 12.9 (12.0-15.0) g/dL Hct 37.9 (37-47) % MCV 88.6 (81-99) fL MCH 30.1 (27.0-32.0) pg MCHC 34.0 (32-36) g/dL RDW Std Deviation 37.4 (35.1-43.9) fl RDW Coeff of Michael 11.8 (11.6-14.6) % Plt Count 104 L (150-450) K/mm3 MPV 10.7 (6.2-12.0) fl Immature Gran % (Auto) 0.500 (0.0-0.9) % Neut % (Auto) 67.3 (47-70) % Lymph % (Auto) 24.0 (19-41) % [place] % (Auto) 5.9 (0-10) % Eos % (Auto) 1.8 (0-5) % Baso % (Auto) 0.5 (0-1) % Absolute Neuts (auto) 1.5 L (2.0-7.7) X10^3/uL Absolute Lymphs (auto) 0.53 L (0.83-4.51) X10^3/uL Nucleated RBC % 0 (0-5) % Differential Comment SCANNED Diff Path Review Reviewed Platelet Estimate (ADEQ) ESR (0-20) mm/hr PT (11.7-14.9) SECONDS INR APTT (24.1-36.2) Seconds D-Dimer Quant (PE/DVT) (0.27-0.49) FEU/ug/m Sodium 138 (136-145) mmol/L Potassium 3.6 (3.5-5.1) mmol/L Chloride 107 (98-107) mmol/L Carbon Dioxide 26.0 (21.0-32.0) mmol/L Anion Gap 5 (5-15) BUN 8 (7-18) mg/dL Creatinine 0.76 (0.55-1.02) mg/dL Estim Creat Clear Calc 101.82 ml/min Est GFR (MDRD) Af Amer 119 (>60) mL/min Est GFR (MDRD) Non-Af 98 (>60) mL/min BUN/Creatinine Ratio 10.5 (10-20) RATIO Glucose 90 (74-106) mg/dL Calcium 8.7 (8.5-10.1) mg/dL Total Bilirubin 1.40 H (0.20-1.00) mg/dL Direct Bilirubin (0.00-0.30) mg/dL GGT (5-55) U/L AST 323 H (15-37) U/L ALT 349 H (13-56) U/L Alkaline Phosphatase 85 (45-117) U/L Lactate Dehydrogenase (84-246) U/L C-React Prot Ext Range (0.0-3.0) mg/L Total Protein 8.0 (6.4-8.2) g/dL Albumin 3.5 (3.2-5.0) g/dL Globulin 4.5 H (2.2-4.2) g/dL Albumin/Globulin Ratio 0.8 L (0.9-2.4) RATIO Triglycerides ( - 199) mg/dL Cholesterol (200) mg/dL LDL Cholesterol (0-130) mg/dL VLDL Cholesterol (5-40) mg/dL HDL Cholesterol (40 - ) mg/dL Lipase (73-393) U/L Serum , Qual NEGATIVE Negative Urine Color (Yellow) Urine Clarity (Clear) Urine pH (5.0 - 8.0) Ur Specific [place] (1.002-1.030) Urine Protein (Negative) mg/dl Urine Glucose (UA) (Normal) mg/dl Urine Ketones (Negative) mg/dl Urine Occult Blood (Negative) /ul Urine Nitrite (Negative) Urine Bilirubin (Negative) mg/dL Urine Urobilinogen (Normal) mg/dl Ur Leukocyte Esterase (Negative) /ul Urine RBC (0-5) /hpf Urine WBC (0-5) /hpf Ur Squamous Epith Cells (5-10) /hpf Urine Bacteria (None Seen) /hpf Urine Mucus (<or=2+) /hpf Urine Opiates Screen (< 300 ng/mL) Urine Methadone Screen (< 300 ng/mL) Ur Barbiturates Screen (< 200 ng/mL) Ur Phencyclidine Scrn (< 25 ng/mL) Ur Amphetamines Screen (<1000 ng/mL) U Methamphetamin-MDMA (< 500 ng/mL) U Benzodiazepines Scrn (< 200 ng/mL) Urine Cocaine Screen (< 300 ng/mL) U Cannabinoids Screen (< 50 ng/mL) Ur Drug Screen Comment Rheumatoid Factor (<15) IU/mL Hepatitis A IgM Ab (Negative) Hep Bs Antigen (Negative) Hep B Core IgM Ab (Negative) Hepatitis C Ab (EIA) (0.0-0.9) s/co ratio HIV 1&2 Antibody (Nonreactive) Microbiology 09/13/18 13:10 Mucosa - Nose Respiratory Panel (PCR) - Final -negative 09/11/18 15:08 Stool Stool Occult Blood (NAVEEN) - Final Occult Blood Positive Dr. Rodriguez-General surgery Operations: None Procedures: None Summary of Care Provided: The patient is a 23-year-old female who presented to the emergency department at [facility] on 09/11/2018 complaining of a 3-day history of a mostly dry cough associated with sore throat and some nasal congestion. She additionally complained of fatigue and feeling short of breath but denied wheezing. She denied fever or chills. She also had an episode of bright red rectal bleeding with red blood mixed with the stool, in the water and on the toilet paper. She admitted to a history of constipation and hemorrhoidal bleeding in the past. She denied any abdominal pain, nausea or vomiting. Vital signs at presentation to the emergency room were temperature 97.5, blood pressure 142/93, heart rate 84, respiratory rate 17 and she was 99% saturated on room air. CBC was significant for a decreased white blood cell count at 2.2, hemoglobin of 12.9 and platelets of 104,000. The WBC differential was unrema rkable. PT was within normal limits and the PTT was mildly increased at 48.2. D-dimer was normal. BMP was unremarkable. The total bilirubin was elevated at 1.4, alkaline phosphatase was normal and the AST was 323 with an ALT of 349. ESR was normal at 16 and the CRP was very mildly increased at 6.6. UA showed 0 WBCs per high-power field and 0 RBC's. Gallbladder ultrasound was obtained and showed hepatomegaly with steatosis. There was decreased echogenicity of the pancreas of uncertain etiology. Hepatitis panel was negative. She denied any recent [id number] or prescribed medications. She consumes only occasional social alcohol. She denied any illicit drug use. She does have tattoos. A respiratory panel was negative. Multiple lab tests were sent out to evaluate for autoimmune disorders, EBV, CMV. a lipid panel showed a total cholesterol of 233 with an HDL of 38 and an LDL of 160. Triglycerides were within normal limits at 174. PE was normal and she does not look ill. Lab on the date of discharge showed that the white blood cell count was increasing and was 3.1, up from 2.2 at admission. Platelets were 136,000, up from 96,000. Bilirubin was normal and alkaline phos was normal. Transaminases remain elevated and the AST was 337 with an ALT of 469. Albumin is within normal limits but the globulins have been elevated since admission. Globulin at discharge was 5.0. A urine drug screen was negative. HIV was negative. Rheumatoid factor was less than 10. She was afebrile for the duration of her hospital stay. Vital signs have been stable and pulse ox is appropriate on room air. SID screen, antimitochondrial antibodies, anti-smooth muscle antibodies, CMV IgM antibody and CMV DNA PCR, EBV titers and HSV 1 and 2 are still pending at the time of discharge. She has an appointment with Dr. Germain on 09/20/2018 to discuss the results of the lab currently pending. I recommended she stick to a low fat diet because of hepatosteatosis and if/when the LFT's normalize she discuss a lipid lowering agent with Dr. Germain. I also recommended Metamucil or Citrucel daily with 8 ounces of water or juice for constipation/irritable bowel syndrome. She was given a RX for anusol suppositories to use BID as needed for hematochezia/hemorrhoidal flare ups. PHYSICAL EXAM: GENERAL: alert, oriented X 3, Cooperative, NAD, no scleral icterus ORAL: moist mucosa, no mucosal lesions NECK: No JVD, supple, trachea midline, no thyromegaly LUNGS: CTA, symmetric chest expansion HEART: RRR, Normal S1 and S2, no gallop, no pericardial friction rub ABDOMEN: soft, NT, ND, BS present, no guarding with palpation EXTREMITIES: no edema, no cyanosis, no calf tenderness, no petechiae, no ecchymosis SKIN: No rashes, no breakdown, no jaundice NEUROLOGIC: no focal neurologic deficits PSYCH: appropriate, normal affect, pleasant This note was generated with [employer] dictation software. It may contain incorrect words, spelling, and punctuation that were not noted in checking the note before signing. Patient Problems: Active and Suspected Problems Thrombocytopenia (Acute) Leukopenia (Acute) Pneumonitis (Acute) Hepatitis (Acute) - Physical Exam Vital Signs Temp Pulse Resp BP Pulse Ox 98.0 F 85 16 138/94 H 99 09/14/18 13:32 09/14/18 13:32 09/14/18 13:32 09/14/18 13:32 09/14/18 13:32 Oxygen Delivery Method Room Air Weight: 140 lb 6.951 oz Body Mass Index (BMI) 23.3 Intake and Output for Last 24 Hours 09/12/18 09/13/18 09/14/18 23:59 23:59 23:59 Intake Total 1838 / 1838 960 / 1200 360 / 360 Balance 1837 / 1838 960 / 1200 360 / 360 Microbiology Past 72 Hours 09/13/18 13:10 Respiratory Panel (PCR) - Final Mucosa - Nose 09/11/18 15:08 Stool Occult Blood (NAVEEN) - Final Stool Occult Blood Positive Laboratory Tests Past 24 Hrs 09/14/18 09/14/18 09/14/18 05:45 07:40 07:40 WBC 3.1 L RBC 4.80 Hgb 14.7 Hct 42.5 MCV 88.5 MCH 30.6 MCHC 34.6 RDW Std Deviation 37.1 RDW Coeff of Michael 11.5 L Plt Count 136 L MPV 10.6 Immature Gran % (Auto) 0.300 Neut % (Auto) 74.1 H Lymph % (Auto) 18.7 L [place] % (Auto) 4.6 Eos % (Auto) 1.6 Baso % (Auto) 0.7 Absolute Neuts (auto) 2.3 Absolute Lymphs (auto) 0.57 L Nucleated RBC % 0 Diff Path Review May foll PT 12.5 INR 1.0 Sodium Potassium Chloride Carbon Dioxide Anion Gap BUN Creatinine Estim Creat Clear Calc Est GFR (MDRD) Af Amer Est GFR (MDRD) Non-Af BUN/Creatinine Ratio Glucose Calcium Total Bilirubin AST ALT Alkaline Phosphatase Total Protein Albumin Globulin Albumin/Globulin Ratio Triglycerides Cholesterol LDL Cholesterol VLDL Cholesterol HDL Cholesterol Urine Opiates Screen NEGATIVE Urine Methadone Screen NEGATIVE Ur Barbiturates Screen NEGATIVE Ur Phencyclidine Scrn NEGATIVE Ur Amphetamines Screen NEGATIVE U Methamphetamin-MDMA NEGATIVE U Benzodiazepines Scrn NEGATIVE Urine Cocaine Screen NEGATIVE U Cannabinoids Screen NEGATIVE Ur Drug Screen Comment CMV IgM Ab CMV DNA Qual PCR HSV I DNA PCR HSV II DNA PCR 09/14/18 09/14/18 09/14/18 07:40 07:40 07:40 WBC RBC Hgb Hct MCV MCH MCHC RDW Std Deviation RDW Coeff of Michael Plt Count MPV Immature Gran % (Auto) Neut % (Auto) Lymph % (Auto) [place] % (Auto) Eos % (Auto) Baso % (Auto) Absolute Neuts (auto) Absolute Lymphs (auto) Nucleated RBC % Diff Path Review PT INR Sodium 138 Potassium 4.7 Chloride 105 Carbon Dioxide 27.0 Anion Gap 6 BUN 10 Creatinine 0.70 Estim Creat Clear Calc 110.55 Est GFR (MDRD) Af Amer 131 Est GFR (MDRD) Non-Af 108 BUN/Creatinine Ratio 14.3 Glucose 96 Calcium 9.3 Total Bilirubin 1.00 AST 337 H ALT 469 H Alkaline Phosphatase 82 Total Protein 8.4 H Albumin 3.4 Globulin 5.0 H Albumin/Globulin Ratio 0.7 L Triglycerides 174 Cholesterol 233 H LDL Cholesterol 160 H VLDL Cholesterol 35 HDL Cholesterol 38 L Urine Opiates Screen Urine Methadone Screen Ur Barbiturates Screen Ur Phencyclidine Scrn Ur Amphetamines Screen U Methamphetamin-MDMA U Benzodiazepines Scrn Urine Cocaine Screen U Cannabinoids Screen Ur Drug Screen Comment CMV IgM Ab Pending CMV DNA Qual PCR Pending HSV I DNA PCR Pending HSV II DNA PCR Pending Discharge Activity: - - gradually return to normal activity Return to work on:: 09/23/18 Call your doctor if you observe: Fever of 101 or Higher, Swelling in the ankles, - - yellow eyes, yellow skin/jaundice, dark colored urine Home Medications: Medications to take at Discharge Hydrocortisone [Anusol Hc] 25 mg RECTAL BID PRN PRN #12 suppos. 09/14/18 Following Prescrptions Were Given to Patient: Hydrocortisone [Anusol Hc] 25 mg RECTAL BID PRN PRN #12 suppos. PRN Reason: Hemorrhoids Prescription Printed Primary Care Physician: Care Physician,No Primary [Primary Care Provider] - Please follow up with your Primary Care Physician in: has appt with Dr. Germain 09/20/18 Patient Instructions: Non-Alcoholic Fatty Liver Disease (NAFLD) Disposition: Home Minutes spent on discharge:: 40 Patient Condition:: Stable Medical Necessity - Tobacco Use Smoking Status: Never smoker Tobacco Use: Non-smoker Meaningful Use Info Meaningful Use Diagnoses (Choose all that apply): None applicable Code Visit Inpatient E&M: 41810 Disch Hosp
--- NOTE | 2018-09-14 14:21 | PCM.WORK.EX ---
Work/School Excuse Work/School Excuse for:: Patient Please excuse this person from:: Work From: 09/11/18 through: 09/22/18
[2018-09-16 08:14] LABS: CMV Acute Antibody IgM < 30.0 AU/mL (0.0-29.9)
[2018-09-16 10:17] LABS: Anti-Smooth Muscle ABS 14 Units (0-19); Perinuclear Ab (P-ANCA) <1:20 titer (Neg:<1:20)
[2018-09-16 10:19] LABS: Anti-Cardiolipin Ab, IgG, Qn < 9 GPL U/mL (0-14); Anti-Cardiolipin Ab, IgM, Qn 18 MPL U/mL (0-12)
[2018-09-16 10:20] LABS: Anti-dsDNA Ab 77 IU/mL (0-9)
[2018-09-16 10:26] LABS: Anti-Mitochondrial AB <20.0 Units (0.0-20.0)
[2018-09-16 11:10] LABS: Pathologist Review Reviewed
[2018-09-18 19:33] LABS: HSV 1 By PCR Negative (Negative)
[2018-09-19 09:51] LABS: CMV by PCR Negative (Negative); HSV 2 By PCR Negative (Negative)
== END 2018-09-14 13:46 | disposition home or self-care (01) ==
LOC: ED 15:02 → PCU 09-12 05:46
PROVIDERS: Internal Medicine; Admitting Provider Internal Medicine; Emergency Provider Emergency Medicine; Referring Provider Internal Medicine; Visit Provider Student in an Organized Health Care Education/Training Program
DX: R05 Cough (principal); R09.81 Nasal congestion; J02.9 Acute pharyngitis, unspecified; D69.6 Thrombocytopenia, unspecified; K75.9 Inflammatory liver disease, unspecified; D72.819 Decreased white blood cell count, unspecified; R16.0 Hepatomegaly, not elsewhere classified; R21 Rash and other nonspecific skin eruption; R94.5 Abnormal results of liver function studies; K76.0 Fatty (change of) liver, not elsewhere classified; K64.4 Residual hemorrhoidal skin tags; K64.8 Other hemorrhoids; E78.5 Hyperlipidemia, unspecified; K58.9 Irritable bowel syndrome, unspecified
CPT/HCPCS: 36415; 71045; 76705; 80053; 80061; 80074; 80307; 81001; 82248; 82274; 82977; 83516; 83615; 83690; 84703; 85025; 85379; 85610; 85652; 85730; 86038; 86140; 86147; 86225; 86235; 86256; 86431; 86645; 86663; 86664; 86665; 86703; 87496; 87529; 87633; 96365; 96366; 96375; 97166; 97802; 99218; 99285; J7040; A4216; G0378; J2405

== ENCOUNTER 2020-10-13 20:59 | Emergency (ER) | payer OTHER, MEDICAID, SELFPAY ==
[2020-10-13 21:00] VITALS: BP 137/92; PULSE 81; RESP 16; TEMP 36.4; O2SAT 98; BMI 29.9
--- NOTE | 2020-10-13 21:23 | EKG12_ITS ---
Test Reason : DYSRHYTHMIA Blood Pressure : / mmHG Vent. Rate : 073 BPM Atrial Rate : 073 BPM P-R Int : 154 ms QRS Dur : 090 ms QT Int : 380 ms P-R-T Axes : 030 042 053 degrees QTc Int : 418 ms Normal sinus rhythm Nonspecific T wave abnormality Abnormal ECG Confirmed by MACKENZIE RICHARD, SHWETA ([id number]), assistant editor LUZ MARIA KHANNA ([id number]) on 10/14/2020 1:00:04 PM Referred By: PL Confirmed By:SHELIA MANN MD
--- NOTE | 2020-10-13 21:23 | CT_ITS ---
STUDY: CT BRAIN WITHOUT CONTRAST REASON FOR EXAM: Female, 25 years old. Left shoulder tingling. TECHNIQUE: Transaxial CT imaging of the brain was performed without administration of intravenous contrast material. Individualized dose optimization techniques were used for this CT. COMPARISON: No relevant priors. FINDINGS: No evidence of intracranial hemorrhage, mass, infarct or hydrocephalus. No skull fracture. Visualized paranasal sinuses and mastoid air cells with no air-fluid levels. Mild mucosal thickening ethmoid air cells, small polyp right maxillary sinus. Visualized extracranial soft tissues unremarkable. ASPECTS [address]/Brain/Head without Contrast IMPRESSION: Negative CT brain without contrast. Electronically Signed: Enoch Contreras MD at 22:15 EDT Tel , Service support ,
--- NOTE | 2020-10-13 21:27 | EX.ED.UPPERE ---
HPI History of Present Illness Chief Complaint: Upper Extremity Injury Informant: patient and spouse/S.O. Narrative Narrative: Patient comes in with left shoulder area discomfort. She states she was sitting on the couch after dinner. She was not moving or doing anything. She got pain toward the base of her left chest that moved up through her chest and then went to the shoulder. She then had some numbness tingling and a cold feeling at the top of her shoulder. No change in motion or pricing specialist. No headache. No pain with motion. She has not had this before. She feels better now but still has some vague discomfort at the top of the left shoulder. No chest pain. She states she transiently was short of breath but does not feel short of breath now. Of note, patient has a history of lupus. She also was on what sounds like Lovenox and aspirin during her . She is now just on aspirin. 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 She does not know if she has had MTHFR. There is no history of clotting in her the family. No recent surgery immobilization. Her delivery was 7 months ago. She does carry her child on her left arm quite a bit but is not sure if this is contributing or not. [facility] Medical History (Updated 10/13/20 @ 22:[address] Geronimo Linn MD) Allergies High cholesterol IBS (irritable bowel syndrome) Lupus Migraines Home Medications aspirin 81 mg tablet,delayed release 81 mg PO DAILY 10/11/18 [History Last Taken Unknown] hydroxychloroquine 200 mg tablet 300 mg PO DAILY tab 10/11/18 [History Last Taken Unknown] multivitamin 1 tab PO DAILY 10/11/18 [History Last Taken Unknown] norethindrone (contraceptive) 0.35 mg tablet 0.35 mg PO DAILY 10/11/18 [History Last Taken Unknown] azathioprine 150 mg PO DAILY 10/13/20 [History Last Taken Unknown] naproxen 500 mg PO BID #14 tab 10/13/20 [Rx Last Taken Unknown] Allergy/AdvReac Type Severity Reaction Status Date / Time Latex, Natural Rubber Allergy Rash Verified 10/13/20 21:02 Penicillins Allergy Rash Verified 10/13/20 21:02 shellfish derived Allergy Angioedema Verified 10/13/20 21:02 tree nut Allergy Swelling Verified 10/13/20 21:02 red dye AdvReac Vomiting Verified 10/13/20 21:02 Family History Mother Anemia Cancer Cervical cancer Grandmother Asthma Bowel disease Colon cancer Diabetes Grandfather Skin cancer Father Kidney disease Sister Asthma Uncle Diabetes Surgical History History of History of wisdom tooth extraction Social History Smoking Status: Never smoker alcohol intake: never substance use type: does not use what type of physical activity do you participate in: none ROS ROS ED Constitutional Constitutional ED: Denies chills or sweats Eyes Eyes: Denies blurry vision ENT ENT ED: Denies rhinorrhea or sore throat Cardiovascular Cardiovascular: Reports other Details: See history of present illness ; Denies chest pain Respiratory/Chest Respiratory/Chest: Reports dyspnea and other Details: Transient dyspnea not currently present. ; Denies cough or sputum Gastrointestinal Gastrointestinal: Denies abdominal pain, diarrhea, nausea or vomiting Genitourinary Genitourinary ED: Denies dysuria or hematuria Musculoskeletal Musculoskeletal: Reports myalgias, neck pain and other Details: See history of present illness. Her discomfort is lateral in the supraspinatus area not really in the neck. ; Denies back pain Neurologic Neurologic: Reports paresthesias; Denies headache(s) or weakness Psychiatric Psychiatric: Denies anxiety Hematologic/Lymphatic Hematologic/Lymphatic: Denies easy bleeding or easy bruising Allergic/Immunologic Allergic/Immunologic ED: Denies urticaria EXAM Physical Exam Const Vital Signs: 10/13/20 21:00 Temperature 97.6 F L Temperature Source Temporal Pulse Rate 81 Respiratory Rate 16 Blood Pressure 137/92 H Blood Pressure Mean 107 Pulse Ox 98 Oxygen Delivery Method Room Air Positive well nourished and well developed General Appearance ED: well developed and NAD HEENT normocephalic and atraumatic; Negative for trauma or tenderness Eyes PERRL and EOMs intact bilaterally Neck supple Neck Narrative: Patient does have some mild tenderness in the supraspinatus in the left trapezius area. Also, each time I touch it she states it feels almost numb or different than the other areas but she can still feel it. No notable change in radicular symptoms with axial loading of the neck but some local soreness just left of neck/trapezius area. No rashes. No lesions. No swelling or erythema. No skin changes at all. Chest Wall inspection of chest normal Resp normal respiratory effort and clear to auscultation bilaterally Resp Narrative: No pain with a deep breath. No coughing while I am in the room. Effort and Inspection: pain with movement Auscultation: Negative for rales, rhonchi or wheezes Cardio regular rate and regular rhythm GI non-tender and non-distended Palpation: soft Back/Spine no CVA tenderness Extremity normal to inspection and full ROM Extremity Narrative: No edema, cords, tenderness along the venous system or asymmetry General Extremety ED: Negative for edema General Extremity: Negative for edema Neuro oriented x3 Neuro Narrative: Patient has subjective paresthesias to the trapezius and supraspinatus area. Her pricing specialist strength bicep tricep is all completely normal in strength. Distal sensation is intact. Sensorium / Orientation: alert Psych mental status grossly normal Skin Lesions: no lesions Rashes: no rashes Trauma: no lacerations or abrasions MDM MDM MDM Narrative Medical decision making narrative: CBC lites show no acute process. D-dimer was negative. CT h ead was negative. We did a chest x-ray. 2 view x-ray looked at by me shows no sign of pneumothorax, infiltrate or mass. No subcutaneous air. Patient has neck symptoms. When this presented it was a little bit more diffuse. It is now an area of soreness and almost tingling or paresthesias at the trapezius on the left. She has some mild soreness with motion but not with palpation. No neurologic deficit is found. I think this is likely radicular/neck/cervical spine origin. We will get her on nonsteroidals. She is on baby aspirin but short course of nonsteroidal should not affect this. She should return with pains, fever, trouble breathing, worsening or any new symptoms. Lab Data Attestation: I reviewed the patient's lab results. Discharge Plan Triage Chief Complaint: Upper Extremity Injury ED Provider: Geronimo Linn Dx/Rx/DC Orders Clinical Impression: Strain of left trapezius muscle Instructions: ED Neck Sprain or Strain Prescriptions: New naproxen 500 MG tablet 500 mg PO BID Qty: 14 RF: 0 No Action hydroxychloroquine [Plaquenil] 200 mg tablet 300 mg PO DAILY RF: 0 aspirin 81 mg tablet,delayed release (DR/EC) 81 mg PO DAILY RF: 0 norethindrone (contraceptive) [Sun] 0.35 mg tablet 0.35 mg PO DAILY RF: 0 multivitamin Tablet 1 tab PO DAILY RF: 0 azathioprine 50 mg tablet 150 mg PO DAILY RF: 0 Primary Care Provider: Ingrid Germain Referrals: Ingrid Germain MD [Primary Care Provider] - 3-5 Days Disposition Disposition: Home, Self Care
[2020-10-13 22:00] LABS: Absolute Lymphocyte Count 1.33 X10^3/uL (0.83-4.51); Absolute Neutrophil Count 3.1 X10^3/uL (2.0-7.7); Basophil# 0.05 X10^3/uL; Eosinophil# 0.11 X10^3/uL; Eosinophils% 2.2 % (0-5); Hemoglobin 13.9 g/dL (12.0-15.0); Lymphocyte # 1.33 X10^3/ul (0.83-4.51); Lymphocyte % 26.7 % (19-41); Mean Corp Hgb Conc 34.8 g/dL (32-36); Mean Platelet Vol. 9.7 fl (6.2-12.0); Monocyte# 0.39 X10^3/uL; Monocyte% 7.8 % (0-10); NRBC Flagged by Analyzer 0 % (0-5); Neutrophil % 62.1 % (47-70); Platelet Count 166 K/mm3 (150-450); RBC Distribution Width SD 40.7 fl (35.1-43.9); Red Blood Count 4.35 M/mm3 (4.2-5.4)
[2020-10-13 22:14] LABS: Anion Gap 4 (5-15); BUN 10 mg/dL (7-18); BUN/Creat Ratio 13.1 RATIO (10-20); Calcium,Total 9.2 mg/dL (8.5-10.1); Chloride 110 mmol/L (98-107); Creatinine, Serum 0.77 mg/dL (0.55-1.02); EST Glomerular Filtration Rate 96 mL/min (>60); Est Glom Filt Rate - Afr Amer 116 mL/min (>60); Estimated Creatinine Clearance 98.75 ml/min; Glucose 86 mg/dL (74-106); Potassium 3.8 mmol/L (3.5-5.1); Sodium Level 141 mmol/L (136-145)
[2020-10-13 22:16] LABS: D-Dimer Quantitative (DVT/PE) <= 0.27 FEU/ug/m (0.27-0.49)
--- NOTE | 2020-10-13 22:30 | RAD_ITS ---
STUDY: X-RAY CHEST REASON FOR EXAM: Female, 25 years old. Chest pain and shortness of breath. TECHNIQUE: PA and lateral COMPARISON: 09/11/2018 CXR FINDINGS: No apparent pneumothorax, pneumonia, pleural effusion, or edema. Cardiac silhouette, huma and mediastinal contours are within normal limits. No acute osseous abnormality. No evidence of free air under the diaphragm. RAD/Chest PA and Lateral IMPRESSION: Negative chest radiograph. Electronically Signed: Enoch Contreras MD at 23:44 EDT Tel , Service support ,
[2020-10-13] MEDS: Ketorolac 15 MG/ML Vial IV (23:08)
== END 2020-10-13 23:13 | disposition home or self-care (01) ==
PROVIDERS: Emergency Provider Emergency Medicine; PCP Internal Medicine
DX: S46.812A Strain of other muscles, fascia and tendons at shoulder and upper arm level, left arm, initial encounter (principal); X50.1XXA Overexertion from prolonged static or awkward postures, initial encounter; Y93.89 Activity, other specified; Y92.008 Other place in unspecified non-institutional (private) residence as the place of occurrence of the external cause; Y99.8 Other external cause status
CPT/HCPCS: 70450; 71046; 80048; 85025; 85379; 93005; 96361; 96374; 99284; J7030; A4216

== ENCOUNTER → 2021-11-04 | Outpatient (CLI) | payer OTHER, MEDICAID, SELFPAY | END | disposition home or self-care (01) | LOC: LABSPEC 11:00 | PROVIDERS: PCP Internal Medicine; Referring Provider Nurse Practitioner Family; Visit Provider Nurse Practitioner Family | DX: J06.9 Acute upper respiratory infection, unspecified (principal); Z20.822 Contact with and (suspected) exposure to COVID-19 | CPT/HCPCS: 87635; U0003; U0005 ==

== ENCOUNTER → 2022-03-15 | Outpatient (CLI) | payer BC, MEDICAID, SELFPAY ==
[2022-03-15 15:52] LABS: Bacteria 0 SEEN /hpf (None Seen); Mucous, Urine 0 SEEN /hpf (<or=2+); Red Blood Cells-Urine 0 SEEN /hpf (0-5); Squamous Epithelial Cells - UA 0 SEEN /hpf (5-10); White Blood Cells 0 SEEN /hpf (0-5)
[2022-03-15 17:01] LABS: Color, Urine Yellow (Yellow); Glucose, Dipstick Normal (Normal); Ketone-Dipstick Negative (Negative); Leukocyte Esterase-Dipstick Negative /ul (Negative); Nitrite-Dipstick Negative (Negative); Occult Blood-Urine Negative /ul (Negative); Protein-Dipstick Negative (Negative); Urine Bilirubin Dipstick Negative (Negative); Urine Clarity Clear (Clear); Urine Urobilinogen Normal (Normal); Urine pH 6.5 (5.0 - 8.0)
== END | disposition home or self-care (01) ==
LOC: LABSPEC 15:51
PROVIDERS: PCP Internal Medicine; Referring Provider Physician Assistant; Visit Provider Physician Assistant
DX: R19.7 Diarrhea, unspecified (principal); R11.10 Vomiting, unspecified; R31.9 Hematuria, unspecified
CPT/HCPCS: 81001; 87086

== ENCOUNTER → 2022-05-19 | Outpatient (CLI) | payer BC, MEDICAID, SELFPAY ==
--- NOTE | 2022-05-19 09:53 | US_ITS ---
EXAM: US ABDOMEN LIMITED, RIGHT UPPER QUADRANT CLINICAL INDICATION: Fatty infiltration of liver TECHNIQUE: Real-time ultrasound of the right upper quadrant with image documentation. This report was created using [employer] report generation technology. COMPARISON: None. FINDINGS: LIVER: Fatty liver which measures 18.9 cm in length. No focal masses. No intrahepatic biliary ductal dilation. GALLBLADDER: Gallbladder wall measures 2 mm. No gallstones. No no pericholecystic fluid. No gallbladder wall thickening. Sonographic Grover''s sign is absent. COMMON BILE DUCT: Common bile duct is normal measuring 4 mm. The proximal common bile duct is within normal limits for the patient''s age. PANCREAS: Visualized pancreas is unremarkable. RIGHT KIDNEY: Right kidney are unremarkable. There is no hydronephrosis. No shadowing calculus. No focal lesion or perinephric collection is demonstrated. FREE FLUID: No ascites. US/Abdomen Limited IMPRESSION: 1. Hepatomegaly and hepatic steatosis. 2. No acute disease. Electronically Signed: Abdiaziz Burdick MD at 23:58 EDT ,
== END | disposition home or self-care (01) ==
LOC: US 09:52
PROVIDERS: PCP Internal Medicine; Referring Provider Internal Medicine; Visit Provider Internal Medicine
DX: K76.0 Fatty (change of) liver, not elsewhere classified (principal)
CPT/HCPCS: 76705

== ENCOUNTER → 2022-05-24 | Outpatient (CLI) | payer BC, MEDICAID, SELFPAY ==
[2022-05-24 16:53] LABS: Cholesterol 202 mg/dL (200); High Density Lipoprotein 36 mg/dL; Triglycerides 131 mg/dL; Very Low Density Lipoprotein 26 mg/dL (5-40)
== END | disposition home or self-care (01) ==
LOC: BIMLAB 15:03
PROVIDERS: PCP Internal Medicine; Referring Provider Internal Medicine; Visit Provider Internal Medicine
DX: K76.0 Fatty (change of) liver, not elsewhere classified (principal); E66.9 Obesity, unspecified
CPT/HCPCS: 36415; 80061

== ENCOUNTER 2022-06-07 09:25 | Outpatient (RCR) | payer BC, MEDICAID, SELFPAY | END 2022-06-11 23:59 | LOC: NS 09:25 | PROVIDERS: PCP Internal Medicine; Referring Provider Internal Medicine; Visit Provider Internal Medicine | DX: Z71.3 Dietary counseling and surveillance (principal); E66.9 Obesity, unspecified; K76.0 Fatty (change of) liver, not elsewhere classified | CPT/HCPCS: 97802 ==

== ENCOUNTER 2022-07-03 09:08 | Outpatient (RCR) | payer BC, MEDICAID, SELFPAY | END 2022-07-12 23:59 | LOC: NS 09:08 | PROVIDERS: PCP Internal Medicine; Referring Provider Internal Medicine; Visit Provider Internal Medicine | DX: Z71.3 Dietary counseling and surveillance (principal); E66.9 Obesity, unspecified; K76.0 Fatty (change of) liver, not elsewhere classified; Z68.32 Body mass index [BMI] 32.0-32.9, adult | CPT/HCPCS: 97803 ==

== ENCOUNTER 2022-07-31 09:00 | Outpatient (RCR) | payer BC, SELFPAY | END 2022-08-11 23:59 | LOC: NS 09:00 | PROVIDERS: PCP Internal Medicine; Referring Provider Internal Medicine; Visit Provider Internal Medicine | DX: Z71.3 Dietary counseling and surveillance (principal); E66.9 Obesity, unspecified; K76.0 Fatty (change of) liver, not elsewhere classified; Z68.32 Body mass index [BMI] 32.0-32.9, adult | CPT/HCPCS: 97803 ==

== ENCOUNTER 2022-08-30 15:30 | Outpatient (RCR) | payer BC, SELFPAY | END 2022-09-11 23:59 | LOC: NS 15:30 | PROVIDERS: PCP Internal Medicine; Referring Provider Internal Medicine; Visit Provider Internal Medicine | DX: Z71.3 Dietary counseling and surveillance (principal); E66.9 Obesity, unspecified; K76.0 Fatty (change of) liver, not elsewhere classified; Z68.33 Body mass index [BMI] 33.0-33.9, adult | CPT/HCPCS: 97803 ==

== ENCOUNTER → 2022-09-15 | Outpatient (CLI) | payer BC, SELFPAY | END | disposition home or self-care (01) | LOC: SL 13:33 | PROVIDERS: PCP Internal Medicine; Referring Provider Internal Medicine; Visit Provider Internal Medicine | DX: G47.10 Hypersomnia, unspecified (principal) | CPT/HCPCS: 95806 ==

== ENCOUNTER 2022-10-04 08:39 | Outpatient (RCR) | payer BC, SELFPAY | END 2022-10-12 23:59 | LOC: NS 08:39 | PROVIDERS: PCP Internal Medicine; Referring Provider Internal Medicine; Visit Provider Internal Medicine | DX: Z71.3 Dietary counseling and surveillance (principal); E66.9 Obesity, unspecified; K76.0 Fatty (change of) liver, not elsewhere classified; Z68.33 Body mass index [BMI] 33.0-33.9, adult | CPT/HCPCS: 97803 ==

== ENCOUNTER → 2022-10-10 | Outpatient (CLI) | payer BC, SELFPAY | END | disposition home or self-care (01) | LOC: SL 20:01 | PROVIDERS: PCP Internal Medicine; Referring Provider Internal Medicine; Visit Provider Internal Medicine | DX: G47.10 Hypersomnia, unspecified (principal) | CPT/HCPCS: 95810 ==

== ENCOUNTER 2022-11-01 09:03 | Outpatient (RCR) | payer BC, SELFPAY | END 2022-11-11 23:59 | LOC: NS 09:03 | PROVIDERS: PCP Internal Medicine; Referring Provider Internal Medicine; Visit Provider Internal Medicine | DX: Z71.3 Dietary counseling and surveillance (principal); E66.9 Obesity, unspecified; K76.0 Fatty (change of) liver, not elsewhere classified | CPT/HCPCS: 97803 ==

== ENCOUNTER → 2022-11-06 | Outpatient (CLI) | payer BC, SELFPAY ==
[2022-11-06 12:04] LABS: Absolute Lymphocyte Count 1.47 X10^3/uL (0.83-4.51); Absolute Neutrophil Count 3.6 X10^3/uL (2.0-7.7); Basophil# 0.07 X10^3/uL; Basophil% 1.2 % (0-1); Eosinophils% 1.7 % (0-5); Hematocrit 41.8 % (37-47); Hemoglobin 14.5 g/dL (12.0-15.0); Lymphocyte # 1.47 X10^3/ul (0.83-4.51); Lymphocyte % 25.6 % (19-41); Mean Corp Hgb Conc 34.7 g/dL (32-36); Mean Corpuscular Hgb 31.1 pg (27.0-32.0); Mean Corpuscular Volume 89.7 fL (81-99); Mean Platelet Vol. 10.3 fl (6.2-12.0); Monocyte# 0.51 X10^3/uL; Monocyte% 8.9 % (0-10); NRBC Flagged by Analyzer 0 % (0-5); Neutrophil # 3.58 X10^3/uL (2.7-7.7); Neutrophil % 62.4 % (47-70); Platelet Count 225 K/mm3 (150-450); RBC Distribution Width CV 11.8 % (11.6-14.6); Red Blood Count 4.66 M/mm3 (4.2-5.4); White Blood Count 5.7 K/mm3 (4.4-11.0)
[2022-11-06 12:45] LABS: ALB/GLOB Ratio 1.1 RATIO (0.9-2.4); AST(SGOT) 31 U/L (15-37); Alanine Aminotransfer ALT/SGPT 63 U/L (13-56); Albumin, Serum 3.9 g/dL (3.2-5.0); Alkaline Phosphatase 53 U/L (45-117); Anion Gap 3 (5-15); BUN 11 mg/dL (7-18); BUN/Creat Ratio 11.9 RATIO (10-20); Calcium,Total 8.7 mg/dL (8.5-10.1); Chloride 110 mmol/L (98-107); Cholesterol 161 mg/dL (200); Creatinine, Serum 0.92 mg/dL (0.55-1.02); EST Glomerular Filtration Rate 76 mL/min (>60); Est Glom Filt Rate - Afr Amer 93 mL/min (>60); Globulin 3.4 g/dL (2.2-4.2); Glucose 106 mg/dL (74-106); High Density Lipoprotein 35 mg/dL; Potassium 4.4 mmol/L (3.5-5.1); Protein, Total 7.3 g/dL (6.4-8.2); Sodium Level 139 mmol/L (136-145); Triglycerides 102 mg/dL; Very Low Density Lipoprotein 20 mg/dL (5-40)
== END | disposition home or self-care (01) ==
LOC: BIMLAB 10:20
PROVIDERS: PCP Internal Medicine; Visit Provider Internal Medicine
DX: Z00.00 Encounter for general adult medical examination without abnormal findings (principal)
CPT/HCPCS: 36415; 80053; 80061; 85025

== ENCOUNTER → 2022-12-28 | Outpatient (CLI) | payer BC, SELFPAY | END | disposition home or self-care (01) | LOC: SL 09:55 | PROVIDERS: PCP Internal Medicine; Visit Provider Internal Medicine | DX: Z00.00 Encounter for general adult medical examination without abnormal findings (principal) ==